=== PATIENT | female | born 1950 | race Caucasian/White ===

== ENCOUNTER → 2017-05-23 11:59 | Outpatient (CLI) | payer MEDICARE, SELFPAY ==
--- NOTE | 2017-05-23 12:17 | XR_ITS ---
XR sternum min 2V CLINICAL INDICATION: ITS.REASON: STERNAL AND CHEST WALL PAIN ORDERING PHYSICIAN: Karlo Bass MD PATIENT AGE: 67 years COMPARISON: None FINDINGS: No fracture or dislocation. No obvious lytic or blastic change. IMPRESSION: Negative sternum. CT may better evaluate if clinically warranted.
--- NOTE | 2017-05-23 12:17 | XR_ITS ---
XR chest 2V HISTORY: ITS.REASON: STENAL AND CHEST WALL PAIN ORDERING PHYSICIAN: Karlo Bass MD PATIENT AGE: 67 years COMPARISON: None available FINDINGS: Cardiac size is upper limits of normal. No evidence of CHF. No obvious mediastinal or hilar mass. The lungs are clear bilaterally. No effusions or infiltrates. There is a mild upper thoracic scoliosis convex right and lower thoracic scoliosis convex left with multilevel osteophytes and mild ankylosis of the thoracic spine. IMPRESSION: 1. No acute finding. 2. 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
[2017-05-23 12:45] LABS: Basophils % 0.5 % (0.1-2.0); Eosinophils # 0.1 K/mm3 (0.0-0.4); Eosinophils % 0.7 % (0.1-12.0); Hematocrit 40.8 % (37.0-47.0); Hemoglobin 13.3 g/dL (12.2-16.2); Lymphocytes # 1.9 K/mm3 (0.7-4.5); Lymphocytes % 28.8 K/mm3 (10-50); Mean Corpuscular HGB Conc 32.5 g/dL (31.8-35.4); Mean Corpuscular Hemoglobin 30.1 pg (27.0-31.2); Mean Corpuscular Volume 92.4 fl (81-99); Mean Platelet Volume 8.1 fl (7.4-10.4); Monocytes # 0.2 K/mm3 (0.1-1.0); Monocytes % 3.6 % (1.7-9.3); Neutrophils # 4.4 K/mm3 (1.8-7.8); Neutrophils % 66.5 % (37.0-80.0); Platelet Count 268 K/mm3 (142-424); Red Blood Count 4.42 M/mm3 (4.20-5.40); Red Cell Distribution Width 13.5 % (11.5-17.5); White Blood Count 6.7 K/mm3 (4.8-10.8)
[2017-05-23 14:22] LABS: Alanine Aminotransferase 24 U/L (12-78); Albumin Level 3.9 gm/dL (3.4-5.0); Albumin/Globulin Ratio 1.3 (1.1-1.8); Alkaline Phosphatase 119 U/L (46-116); Anion Gap 9.9 mEq/L (5-15); Aspartate Amino Transferase 18 U/L (15-37); Bilirubin,Total 0.3 mg/dL (0.2-1.0); Blood Urea Nitrogen 10 mg/dL (7-18); Calcium 8.8 mg/dL (8.5-10.1); Carbon Dioxide 26 mmol/L (21.0-32.0); Chloride 107 mmol/L (98-107); Chol/HDL Ratio 2.1 (1-3.5); Cholesterol 163 mg/dL (140-200); Creatinine,Serum 0.77 mg/dL (0.55-1.02); Estimated Glomerular Filt Rate 75 ml/min (>60); GFR (African American) 90 ML/MIN (>60); Globulin 3.1 gm/dl (1.3-3.2); Glucose 126 mg/dL (74-106); HDL Cholesterol 78 mg/dL (29-89); LDL Cholesterol 68 mg/dL (0-130); Potassium 3.9 mmoL/L (3.5-5.1); Sodium 139 mmol/L (136-145); Triglycerides 84 mg/dL (30-200); VLDL Cholesterol 17 mg/dL (0-40)
[2017-05-25 15:19] LABS: Vitamin D 25 Hydroxy 22.4 ng/mL (30.0-100.0)
== END ==
PROVIDERS: PCP Internal Medicine Adolescent Medicine; Visit Provider Internal Medicine Adolescent Medicine
DX: R07.89 Other chest pain (principal); E55.9 Vitamin D deficiency, unspecified
CPT/HCPCS: 36415; 71046; 71120; 80053; 80061; 82652; 85025

== ENCOUNTER → 2017-09-17 10:34 | Outpatient (CLI) | payer MEDICARE, SELFPAY ==
[2017-09-17 11:08] LABS: Hemoglobin A1C 6.2 % (0.0-7.0)
[2017-09-17 11:26] LABS: Alanine Aminotransferase 21 U/L (12-78); Albumin/Globulin Ratio 1.3 (1.1-1.8); Alkaline Phosphatase 112 U/L (46-116); Anion Gap 13.3 mEq/L (5-15); Aspartate Amino Transferase 20 U/L (15-37); Bilirubin,Total 0.4 mg/dL (0.2-1.0); Blood Urea Nitrogen 13 mg/dL (7-18); Calcium 9.3 mg/dL (8.5-10.1); Carbon Dioxide 27 mmol/L (21.0-32.0); Chloride 107 mmol/L (98-107); Creatinine,Serum 0.83 mg/dL (0.55-1.02); Estimated Glomerular Filt Rate 69 ml/min (>60); GFR (African American) 83 ML/MIN (>60); Globulin 3.1 gm/dl (1.3-3.2); Glucose 125 mg/dL (74-106); Potassium 4.3 mmoL/L (3.5-5.1); Sodium 143 mmol/L (136-145); Total Protein,Serum 7.1 gm/dL (6.4-8.2)
== END ==
PROVIDERS: Visit Provider Internal Medicine Adolescent Medicine
DX: R73.9 Hyperglycemia, unspecified (principal)
CPT/HCPCS: 36415; 80053; 83036

== ENCOUNTER → 2017-09-20 08:09 | Outpatient (CLI) | payer MEDICARE, SELFPAY ==
--- NOTE | 2017-09-20 08:20 | MM_ITS ---
MM Dig screening mamm BI w/CAD CAD Screening COMPARISON: None, this is baseline INDICATION: There is a history of breast cancer patient maternal aunt. TECHNIQUE: Standard CC and MLO images were obtained. R2 CAD reviewed. FINDINGS: The breasts are composed primarily of fat with scattered fibroglandular densities throughout both breast. There are few benign-appearing calcifications in each breast. There are linear calcification in the subareolar region of the right breast typical of secretory disease. There is no suspicious lesion and no suspicious microcalcifications. There are small fatty replaced nodes in both axilla. IMPRESSION: Fibrofatty parenchyma with no suspicious lesion seen BI-RADS Category: 2 Benign Finding(s) RECOMMENDED FOLLOW-UP: 1YR - 1 YEAR FOLLOW-UP (A letter has been sent to the patient regarding results of the study.)
--- NOTE | 2017-09-20 08:20 | XR_ITS ---
XR DEXA axial skeleton HISTORY: ITS.REASON: POST MENOPAUSAL ORDERING PHYSICIAN: Karlo Bass MD PATIENT AGE: 67 years COMPARISON: None FINDINGS: The BMD measured at the left femoral neck is 0.978 g/cm squared with a T score of -0.4. This is considered Normal according to the World Health Organization criteria. Fracture risk is Low. Treatment is advised. The L1 L4 density has a T score of 2.1 which is normal IMPRESSION: Normal bone density. Low fracture risk. Recommend follow-up exam September 2019
== END ==
PROVIDERS: PCP Internal Medicine Adolescent Medicine; Visit Provider Internal Medicine Adolescent Medicine
DX: Z12.31 Encounter for screening mammogram for malignant neoplasm of breast (principal); Z78.0 Asymptomatic menopausal state
CPT/HCPCS: 77067; 77080

== ENCOUNTER → 2017-12-28 10:36 | Outpatient (CLI) | payer MEDICARE, SELFPAY ==
[2017-12-28 12:14] LABS: Alanine Aminotransferase 20 U/L (12-78); Albumin/Globulin Ratio 1.1 (1.1-1.8); Alkaline Phosphatase 119 U/L (46-116); Anion Gap 13.9 mEq/L (5-15); Aspartate Amino Transferase 18 U/L (15-37); Bilirubin,Total 0.5 mg/dL (0.2-1.0); Blood Urea Nitrogen 13 mg/dL (7-18); Calcium 9.4 mg/dL (8.5-10.1); Carbon Dioxide 28 mmol/L (21.0-32.0); Chloride 104 mmol/L (98-107); Estimated Glomerular Filt Rate 62 ml/min (>60); GFR (African American) 76 ML/MIN (>60); Globulin 3.6 gm/dl (1.3-3.2); Glucose 114 mg/dL (74-106); Potassium 3.9 mmoL/L (3.5-5.1); Sodium 142 mmol/L (136-145); Total Protein,Serum 7.6 gm/dL (6.4-8.2)
[2017-12-28 12:16] LABS: Hemoglobin A1C 6.5 % (0.0-7.0)
== END ==
PROVIDERS: PCP Internal Medicine Adolescent Medicine; Visit Provider Internal Medicine Adolescent Medicine
DX: E11.9 Type 2 diabetes mellitus without complications (principal)
CPT/HCPCS: 36415; 80053; 83036

== ENCOUNTER → 2018-07-24 10:20 | Outpatient (CLI) | payer MEDICARE, SELFPAY ==
[2018-07-24 11:11] LABS: Basophils % 0.4 % (0.1-2.0); Eosinophils # 0.1 K/mm3 (0.0-0.4); Eosinophils % 1.3 % (0.1-12.0); Hematocrit 41.3 % (37.0-47.0); Hemoglobin 13.1 g/dL (12.2-16.2); Lymphocytes # 1.8 K/mm3 (0.7-4.5); Lymphocytes % 27.8 % (10-50); Mean Corpuscular HGB Conc 31.7 g/dL (31.8-35.4); Mean Corpuscular Hemoglobin 29.9 pg (27.0-31.2); Mean Corpuscular Volume 94.2 fl (81-99); Monocytes # 0.3 K/mm3 (0.1-1.0); Monocytes % 4.3 % (1.7-9.3); Neutrophils # 4.3 K/mm3 (1.8-7.8); Neutrophils % 66.2 % (37.0-80.0); Platelet Count 242 K/mm3 (142-424); Red Blood Count 4.38 M/mm3 (4.20-5.40); Red Cell Distribution Width 13.4 % (11.5-17.5); White Blood Count 6.5 K/mm3 (4.8-10.8)
[2018-07-24 11:58] LABS: Alanine Aminotransferase 20 U/L (12-78); Albumin/Globulin Ratio 1.3 (1.1-1.8); Alkaline Phosphatase 99 U/L (46-116); Anion Gap 14.8 mEq/L (5-15); Aspartate Amino Transferase 13 U/L (15-37); Bilirubin,Total 0.5 mg/dL (0.2-1.0); Blood Urea Nitrogen 14 mg/dL (7-18); Calcium 9.1 mg/dL (8.5-10.1); Carbon Dioxide 27 mmol/L (21.0-32.0); Chloride 106 mmol/L (98-107); Cholesterol 164 mg/dL (140-200); Estimated Glomerular Filt Rate 71 ml/min (>60); GFR (African American) 86 ML/MIN (>60); Glucose 106 mg/dL (74-106); HDL Cholesterol 81 mg/dL (29-89); LDL Cholesterol 69 mg/dL (0-130); Potassium 4.8 mmoL/L (3.5-5.1); Sodium 143 mmol/L (136-145); Triglycerides 69 mg/dL (30-200); VLDL Cholesterol 14 mg/dL (0-40)
[2018-07-24 12:36] LABS: Hemoglobin A1C 6.2 % (0.0-7.0)
== END ==
PROVIDERS: Visit Provider Internal Medicine Adolescent Medicine
DX: E78.5 Hyperlipidemia, unspecified (principal); E11.9 Type 2 diabetes mellitus without complications; Z79.84 Long term (current) use of oral hypoglycemic drugs; M15.0 Primary generalized (osteo)arthritis
CPT/HCPCS: 36415; 80053; 80061; 83036; 85025

== ENCOUNTER 2018-08-25 22:37 | Inpatient (IN) ==
[2018-08-25 23:02] LABS: Basophils % 0.2 % (0.1-2.0); Eosinophils # 0.1 K/mm3 (0.0-0.4); Hematocrit 38.6 % (37.0-47.0); Hemoglobin 12.8 g/dL (12.2-16.2); Lymphocytes # 1.1 K/mm3 (0.7-4.5); Lymphocytes % 9.1 % (10-50); Mean Corpuscular HGB Conc 33.1 g/dL (31.8-35.4); Mean Corpuscular Hemoglobin 28.9 pg (27.0-31.2); Mean Corpuscular Volume 87.4 fl (81-99); Mean Platelet Volume 7.8 fl (7.4-10.4); Monocytes # 0.6 K/mm3 (0.1-1.0); Monocytes % 4.7 % (1.7-9.3); Neutrophils # 10.6 K/mm3 (1.8-7.8); Neutrophils % 85.1 % (37.0-80.0); Platelet Count 206 K/mm3 (142-424); Red Blood Count 4.42 M/mm3 (4.20-5.40); Red Cell Distribution Width 12.9 % (11.5-17.5); White Blood Count 12.5 K/mm3 (4.8-10.8)
[2018-08-25 23:08] LABS: Eosinophils % 1 % (0-3); Lymphocytes % 5 % (10-50); Monocytes % 4 % (2-9); Neutrophils % 89 % (42-76); RBC Morphology Normal; Total Cells Counted 100
[2018-08-25 23:10] LABS: Albumin Level 3.7 gm/dL (3.4-5.0); Albumin/Globulin Ratio 1.1 (1.1-1.8); Anion Gap 16.8 mEq/L (5-15); Bilirubin,Total 0.7 mg/dL (0.2-1.0); Calcium 8.7 mg/dL (8.5-10.1); Globulin 3.5 gm/dl (1.3-3.2); Potassium 3.8 mmoL/L (3.5-5.1); Total Protein,Serum 7.2 gm/dL (6.4-8.2)
--- NOTE | 2018-08-25 23:27 | Emergency Department Note ---
ED Disposition Clinical Impression: Diverticulitis UTI (urinary tract infection) Qualifiers: Urinary tract infection type: site unspecified Hematuria presence: without hematuria Qualified Code(s): N39.0 - Urinary tract infection, site not specified Disposition: Admitted As Inpatient Condition on Discharge: Fair - Critical Care Critical Care Time: No Attestation: On 08/25/18, the high probability of a clinically significant, sudden or life threatening deterioration of the following system(s) required my full and direct attention, intervention and personal management. The time I documented below is in addition to time spent performing reported procedures but includes the following listed in this critical care notation. Medical Decision Making - Medical Records Medical records reviewed: Yes: I reviewed the patient's medical records. - Efraín Inquiry Pt receiving controlled substance: No Vital Signs: 08/25/18 22:41 08/25/18 23:35 08/26/18 00:02 Temperature 99.7 F H Temperature Source Oral Pulse Rate [Right Brachial] 95 H 73 71 Respiratory Rate 18 18 16 Blood Pressure [Right Arm] 148/81 H 122/63 128/67 Blood Pressure Mean [Right Arm] 103 82 87 Blood Pressure Source [Right Arm] Automatic Cuff Automatic Cuff Automatic Cuff Blood Pressure Position [Right Arm] Sitting Sitting Sitting 02 Sat by Pulse Oximetry 97 97 97 Oxygen Delivery Method Room Air Room Air Room Air 08/26/18 01:00 Temperature 99.0 F Temperature Source Oral Pulse Rate [Right Brachial] 77 Respiratory Rate 16 Blood Pressure [Right Arm] 131/66 Blood Pressure Mean [Right Arm] 87 Blood Pressure Source [Right Arm] Automatic Cuff Blood Pressure Position [Right Arm] Sitting 02 Sat by Pulse Oximetry 97 Oxygen Delivery Method Room Air - Lab Data Lab results reviewed: Yes: I reviewed the patient's lab results. Lab Results 08/25/18 22:50: WBC 12.5 H, RBC 4.42, Hgb 12.8, Hct 38.6, MCV 87.4, MCH 28.9, MCHC 33.1, RDW 12.9, Plt Count 206, MPV 7.8, Neut % (Auto) 85.1 H, Lymph % (Auto) 9.1 L, Long % (Auto) 4.7, Eos % (Auto) 1.0, Baso % (Auto) 0.2, Neut # (Auto) 10.6 H, Lymph # (Auto) 1.1, Long # (Auto) 0.6, Eos # (Auto) 0.1, Baso # (Auto) 0.0, Total Counted 100, Neutrophils % (Manual) 89 H, Band Neutrophils % 1.0, Lymphocytes % (Manual) 5 L, Monocytes % (Manual) 4, Eosinophils % (Manual) 1, Platelet Estimate Normal, RBC Morphology Normal 08/25/18 22:50: Sodium 139, Potassium 3.8, Chloride 103, Carbon Dioxide 23, Anion Gap 16.8 H, BUN 14, Creatinine 0.89, Estimated Creat Clear 71, Estimated GFR 63, Est GFR ( Amer) 76, Glucose 142 H, Calcium 8.7, Total Bilirubin 0.7, AST 15, ALT 20, Alkaline Phosphatase 94, Total Protein 7.2, Albumin 3.7, Globulin 3.5 H, Albumin/Globulin Ratio 1.1, Amylase 35, Lipase 65 L 08/25/18 22:50: ESR 23 08/25/18 22:50: C-Reactive Protein 13.2 H 08/25/18 23:34: Urine Color Yellow, Urine Appearance Clear, Urine pH 5.5, Ur Specific [place] 1.025, Urine Protein Negative, Urine Glucose (UA) Negative, Urine Ketones Trace, Urine Blood Trace-i, Urine Nitrate Negative, Urine Bilir ubin Negative, Urine Urobilinogen 0.2, Ur Leukocyte Esterase 1+ A, Urine RBC Occasional, Urine WBC 5-10, Ur Squamous Epith Cells 3-5 Result diagrams: 08/25/18 22:50 08/25/18 22:50 Orders (Tests/Meds): ED MEDICATIONS Generic Name Dose Route Start Last Admin Trade Name Noy PRN Reason Stop Dose Admin Sodium Chloride 1,000 mls @ 999 mls/hr 08/25/18 23:00 08/25/18 23:11 Sod Chlor 0.9% 1000ml Bag IV 08/26/18 00:00 999 mls/hr .Q1H1M SHAYLEE Administration Levofloxacin/Dextrose 750 mg in 150 mls @ 100 mls/hr 08/26/18 01:15 Levofloxacin 750mg/150ml Premix IV 09/09/18 01:14 Q24H SHAYLEE Protocol Metronidazole 500 mg in 100 mls @ 100 mls/hr 08/26/18 01:00 08/26/18 01:17 Flagyl 500mg/100ml Ivpb IV 09/09/18 00:59 100 mls/hr Q8H SHAYLEE Administration Protocol Discontinued Medications Generic Name Dose Route Start Last Admin Trade Name Noy COLEMAN Reason Stop Dose Admin Acetaminophen 500 mg 08/25/18 22:55 08/25/18 23:11 Tylenol 500mg Tablet PO 08/25/18 22:56 500 mg ONCE ONE Administration Ketorolac Tromethamine 15 mg 08/25/18 22:55 08/25/18 23:11 Toradol 30mg/Ml Vial IV 08/25/18 22:56 15 mg ONCE ONE Administration Ondansetron HCl 4 mg 08/25/18 22:53 08/25/18 23:11 Zofran 4mg/2ml Vial IV 08/25/18 22:54 4 mg ONCE ONE Administration ORDERS Category Date Time Status CT abdomen pelvis wo con Stat Cat Scan 08/25/18 22:53 Taken Blood Culture Stat Micro 08/26/18 01:05 Received Urine Culture Stat Micro 08/25/18 23:34 Received - CT Data CT Scan: Abdomen, Pelvis Time Received: 00:[address] Reviewed: Yes: I have viewed the radiologist's interpretation Preliminary Findings: Abnormal (diverticulitis) Nausea/Vomiting/Diarrhea HPI - General Chief complaint: Abdominal Pain Stated complaint: Dry heaving, cough, hot Time Seen by Provider: 08/25/18 23:27 Mode of Arrival: Ambulatory Source of Information: Patient, Medical Record Limitations: No Limitations Description of Symptoms (Recalled from ER Triage Doc. by RN): Pt c/o abd pain, n/v and a fever x 3 days. - History of Present Illness HPI Narrative: lower abd pain with n/v over the last few days MD complaint: nausea, vomiting, abdominal pain Onset (ago): day(s) Associated Abdominal Pain: Yes Location of pain: LLQ Severity: moderate Associated symptoms: denies other symptoms - Related Data Home Medications Medication Instructions Recorded Confirmed calcium carbonate 500 mg calcium 500 mg PO BID tab 10/02/17 08/25/18 (1,250 mg) tablet diclofenac sodium 75 mg 75 mg PO BID 10/02/17 08/25/18 tablet,delayed release glucosamine HCl 1,500 mg tablet 1,500 mg PO ONCE 10/02/17 08/25/18 losartan 25 mg tablet 25 mg PO ONCE 10/02/17 08/25/18 metformin 500 mg tablet 500 mg PO BID 10/02/17 08/25/18 simvastatin 40 mg tablet 40 mg PO QPM 10/02/17 08/25/18 vitamin B12 500 mcg-folic acid 400 1 tab PO ONCE 10/02/17 08/25/18 mcg tablet Allergies Allergy/AdvReac Type Severity Reaction Status Date / Time No Known Allergies Allergy Verified 08/25/18 22:50 [facility] [place] History - Hepatitis A Screen Drug use history?: No High risk sexual behaviors?: No History of sexually transmitted infection?: No Currently employed?: No Childcare worker?: No Do you have indoor plumbing?: Yes Do you have electricity?: Yes Attestation statement:: This patient has been screened for Hepatitis A risk factors. I have reviewed the patient's past medical history: Yes Medical History: Reports:: Diabetes Mellitus Type 2, Hypertension Denies:: Cancer, Diabetes Mellitus Type 1, Internal Pacemaker, Lung Disease, MRSA, Seizures Laterality Cases: Bilateral: Tonsillectomy Other Surgeries: Yes: Colonoscopy, Tubal Ligation. No: Pacemaker Amputation: No - Social History Smoking Status: Never smoker Alcohol Intake: never Substance Use Type: denies use Occupational Status: employed Housing: house - Psychiatric History Expresses thoughts of harming self/others: None Suicide Plan Description: No Plan Family Hx:: No significant family history ROS Obtained: Yes All systems reviewed & no additional complaints - Constitutional Constitutional: Reports fever(s) - Eyes Eyes: Denies change in vision - ENT Ears, Nose, Mouth, and Throat: Denies sore throat - Cardiovascular Cardiovascular: Denies chest pain - Respiratory Respiratory: No cough - Gastrointestinal Gastrointestingal: Reports: abdominal pain, nausea, vomiting. Denies: diarrhea - Genitourinary Female Genitourinary: Denies hematuria - Musculoskeletal Musculoskeletal: Denies joint pain - Integumentary/Breasts Skin/Breast: Denies rash - Neurologic Neurologic: Denies seizure-like activity Physical Exam - General General appearance: alert - Head Head exam: normocephalic - Eye Eye exam: Present: PERRL, EOMI. Absent: scleral icterus - ENT ENT exam: Present: mucous membranes dry - Neck Neck exam: Present: trachea midline - Respiratory Respiratory exam: Present: normal lung sounds bilaterally. Absent: respiratory distress - Cardiovascular Cardiovascular exam: Present: regular rate, systolic murmur, +S4 - Abdominal Exam Abdominal exam: Present: soft, tenderness Abdominal tenderness: Present: LLQ, moderate - Extremities Exam Extremities exam: Present: full ROM - Neurological Exam Neurological exam: Present: alert, oriented X3, CN II-XII intact - Psychiatric Psychiatric exam: Present: normal affect - Skin Skin exam: Absent: rash
[2018-08-25 23:41] LABS: Microscopic, Urine URINE MICROSCOPIC (MICROSCOPIC)
[2018-08-25 23:42] LABS: Appearance,Urine CLEAR (Clear); Bilirubin,Urine Negative (Negative); Blood, Urine TRACE-I (Negative); Color,Urine YELLOW (Yellow); Glucose,Urine (UA) Negative (Negative); Ketones,Urine TRACE (Negative); Leukocyte Esterase,Urine 1+ (Negative); PH,Urine 5.5 (5.0-8.5); Protein,Urine Negative (Negative); Specific Gravity, Urine 1.025 (1.005-1.030); Urobilinogen,Urine 0.2 EU/dl (0.2)
[2018-08-25 23:45] LABS: RBC,Urine Occasional #/hpf (0-3)
[2018-08-26 06:29] LABS: Eosinophils % 0.2 % (0.1-12.0); Monocytes # 0.6 K/mm3 (0.1-1.0)
[2018-08-26 06:37] LABS: Basophils % 0.2 % (0.1-2.0); Hematocrit 35.7 % (37.0-47.0); Lymphocytes # 1.4 K/mm3 (0.7-4.5); Lymphocytes % 12.4 % (10-50); Mean Corpuscular HGB Conc 31.8 g/dL (31.8-35.4); Mean Corpuscular Hemoglobin 28.5 pg (27.0-31.2); Mean Corpuscular Volume 89.6 fl (81-99); Monocytes % 4.9 % (1.7-9.3); Neutrophils # 9.4 K/mm3 (1.8-7.8); Neutrophils % 82.3 % (37.0-80.0); Platelet Count 200 K/mm3 (142-424); Red Blood Count 3.99 M/mm3 (4.20-5.40); White Blood Count 11.5 K/mm3 (4.8-10.8)
[2018-08-26 06:54] LABS: Hemoglobin 11.3 g/dL (12.2-16.2)
[2018-08-26 06:58] LABS: Anion Gap 12.7 mEq/L (5-15); Calcium 8.3 mg/dL (8.5-10.1); Potassium 3.7 mmoL/L (3.5-5.1)
--- NOTE | 2018-08-26 07:29 | Pharmacy Consult Notes ---
[facility] Pharmacy VTE Monitoring - Patient Demographics Admission date: 08/25/18 Report Date: 08/26/18 Time: 07:29 Allergies/Adverse Reactions: Patient Allergies No Known Allergies Allergy (Verified 08/25/18 22:50) Height: 1.6 m Weight: 86.239 kg Patient Problems: Current Active Problems (Updated 08/26/18 @ 01:04 by Micky Hidalgo MD) Diverticulitis (Acute) UTI (urinary tract infection) (Acute) - VTE Risk Labs: VTE Related Lab Results Hgb 11.3 g/dL (12.2-16.2) L D 08/26/18 05:55 Hct 35.7 % (37.0-47.0) L 08/26/18 05:55 Plt Count 200 K/mm3 (142-424) 08/26/18 05:55 BUN 11 mg/dL (7-18) 08/26/18 05:55 Creatinine 0.88 mg/dL (0.55-1.02) 08/26/18 05:55 Estimated Creat Clear 73 mL/min (50-200) 08/26/18 05:55 Was VTE Risk Assessment Performed: Yes VTE Score: 4 VTE Risk Level: Low Risk - Prophylaxis VTE Prophylaxis Ordered?: Yes Types of VTE Prophylaxis: TEDS Knee High Location of Applied Device: Bilateral Lower Extremeties - VTE Diagnosis Confirmed Treatment or plan recommended: Continue Current Treatment
--- NOTE | 2018-08-26 08:11 | History & Physical Report ---
*Admission Date: 08/25/18 *Chief complaint: Abdominal pain *History of present illness: 68-year-old white female with good functional status at home who is had increasing problems with insidious abdominal pain over the past couple of weeks. Thought she had a urinary tract infection and presented to the emergency department. Did indeed have a UTI but also CT scanning showed evidence of significant sigmoid diverticulitis with evidence of microperforation. She was admitted to hospital for further diagnostic testing. Is morning she feels somewhat better. [facility] History I have reviewed the patient's past medical history: Yes Medical History: Reports:: Diabetes Mellitus Type 2, Hypertension Denies:: Cancer, Diabetes Mellitus Type 1, Internal Pacemaker, Lung Disease, MRSA, Seizures *Have you ever received a pneumonia vaccine?: Yes *Have you received a flu vaccine this season?: Yes Laterality Cases: Bilateral: Tonsillectomy Other Surgeries: Yes: Colonoscopy, Tubal Ligation. No: Pacemaker Amputation: No - *Social History Smoking Status: Former smoker Tobacco Type: cigarettes # Packs/Day (cigarettes): 1 Alcohol Intake: never Substance Use Type: denies use *Occupational Status:: employed Housing: house *Travel in the last 8 weeks: None - Psychiatric History Expresses thoughts of harming self/others: None Suicide Plan Description: No Plan Family Hx:: No significant family history, Cancer, Coronary Artery Disease, Diabetes, Hyperlipidemia, Hypertension, Kidney Disease Review of Systems - Review of Systems Review of systems:: pertinent systems reviewed and negative unless documented below - Constitutional Reports anorexia, Reports body ache(s) - Eyes Denies blind spots, Denies blurry vision, Denies change in vision - ENT Denies abnormal hearing, Denies poor balance, Denies dizziness - *Cardiovascular Denies chest pain, Denies excessive sweating, Denies shortness of breath - *Respiratory Denies change in phlegm color, Denies chest congestion, Denies cough - *Gastrointestinal Reports abdominal pain, Reports change in stools, Denies coffee ground vomit, Denies difficulty swallowing - *Musculoskeletal Denies abnormal walking - Integumentary/Breasts Denies acne, Denies hair loss - *Neurologic Denies abnormal walking, Denies seizure-like activity - Hematologic/Lymphatic Denies easy bleeding, Denies easy bruising - Allergic/Immunologic Denies GI upset with certain foods Meds Home Medications Medication Instructions Recorded Confirmed Type calcium carbonate 500 mg calcium 500 mg PO BID tab 07/24/18 06/17/19 History (1,250 mg) tablet diclofenac sodium 75 mg 75 mg PO BID 10/02/17 08/26/18 History tablet,delayed release glucosamine HCl 1,500 mg tablet 1,500 mg PO ONCE 10/02/17 08/26/18 History losartan 25 mg tablet 25 mg PO ONCE 10/02/17 08/26/18 History metformin 500 mg tablet 500 mg PO BID 10/02/17 08/26/18 History simvastatin 40 mg tablet 40 mg PO QPM 10/02/17 08/26/18 History vitamin B12 500 mcg-folic acid 400 1 tab PO ONCE 10/02/17 08/26/18 History mcg tablet Allergies Allergy/AdvReac Type Severity Reaction Status Date / Time No Known Allergies Allergy Verified 08/25/18 22:50 Exam Vital signs and Labs for Last 24 Hours: Temp Pulse Resp BP Pulse Ox 97.9 F 73 18 116/59 L 99 08/26/18 04:00 08/26/18 04:00 08/26/18 04:00 08/26/18 04:00 08/26/18 07:40 Laboratory Results - last 24 hr 08/25/18 22:50: WBC 12.5 H, RBC 4.42, Hgb 12.8, Hct 38.6, MCV 87.4, MCH 28.9, MCHC 33.1, RDW 12.9, Plt Count 206, MPV 7.8, Neut % (Auto) 85.1 H, Lymph % (Auto) 9.1 L, [place] % (Auto) 4.7, Eos % (Auto) 1.0, Baso % (Auto) 0.2, Neut # (Auto) 10.6 H, Lymph # (Auto) 1.1, [place] # (Auto) 0.6, Eos # (Auto) 0.1, Baso # (Auto) 0.0, Total Counted 100, Neutrophils % (Manual) 89 H, Band Neutrophils % 1.0, Lymphocytes % (Manual) 5 L, Monocytes % (Manual) 4, Eosinophils % (Manual) 1, Platelet Estimate Normal, RBC Morphology Normal 08/25/18 22:50: Sodium 139, Potassium 3.8, Chloride 103, Carbon Dioxide 23, Anion Gap 16.8 H, BUN 14, Creatinine 0.89, Estimated Creat Clear 71, Estimated GFR 63, Est GFR ( Amer) 76, Glucose 142 H, Calcium 8.7, Total Bilirubin 0.7, AST 15, ALT 20, Alkaline Phosphatase 94, Total Protein 7.2, Albumin 3.7, Globulin 3.5 H, Albumin/Globulin Ratio 1.1, Amylase 35, Lipase 65 L 08/25/18 22:50: ESR 23 08/25/18 22:50: C-Reactive Protein 13.2 H 08/25/18 23:34: Urine Color Yellow, Urine Appearance Clear, Urine pH 5.5, Ur Specific [place] 1.025, Urine Protein Negative, Urine Glucose (UA) Negative, Urine Ketones Trace, Urine Blood Trace-i, Urine Nitrate Negative, Urine Bilirubin Negative, Urine Urobilinogen 0.2, Ur Leukocyte Esterase 1+ A, Urine RBC Occasional, Urine WBC 5-10, Ur Squamous Epith Cells 3-5 08/26/18 01:05: Lactate 0.5 08/26/18 05:55: WBC 11.5 H, RBC 3.99 L, Hgb 11.3 L D, Hct 35.7 L, MCV 89.6, MCH 28.5, MCHC 31.8, RDW 13.0, Plt Count 200, MPV 8.0, Neut % (Auto) 82.3 H, Lymph % (Auto) 12.4, [place] % (Auto) 4.9, Eos % (Auto) 0.2, Baso % (Auto) 0.2, Neut # (Auto) 9.4 H, Lymph # (Auto) 1.4, [place] # (Auto) 0.6, Eos # (Auto) 0.0, Baso # (Auto) 0.0 08/26/18 05:55: Sodium 144, Potassium 3.7, Chloride 110 H, Carbon Dioxide 25, Anion Gap 12.7, BUN 11, Creatinine 0.88, Estimated Creat Clear 73, Estimated GFR 64, Est GFR ( Amer) 77, Glucose 118 H, Calcium 8.3 L 08/26/18 05:59: POC Glucose 102 I & O for Last 24 hours: Intake & Output 08/23/18 08/24/18 08/25/18 08/26/18 11:59 11:59 11:59 11:59 Intake Total 1100 / 1100 Balance 1100 / 1100 Weight 190 lb 2 oz Narrative: Patient is alert, oriented x3. No jaundice. Lungs clear, heart rate regular. Abdomen soft, slight tenderness in the left lower quadrant but no rebound or guarding. No edema or clubbing or cyanosis. No rash. neurologic exam intact. Assessment and Plan (1) Diverticulitis Current visit: Yes Status: Acute Category: Medical Code(s): K57.92 - Diverticulitis of intestine, part unspecified, without perforation or abscess without bleeding Agree with admission. Given microperforation surgery consultation although anticipate surgical management would be conservative. Clear liquids today. (2) UTI (urinary tract infection) Current visit: Yes Status: Acute Qualifiers: Urinary tract infection type: site unspecified Hematuria presence: without hematuria Qualified Code(s): N39.0 - Urinary tract infection, site not specified Category: Medical Code(s): N39.0 - Urinary tract infection, site not specified Await culture result.
--- NOTE | 2018-08-26 08:50 | Consult Report ---
*Admission Date: 08/25/18 *Reason for consult:: Diverticulitis *History of present illness: The following is from Dr. Bass's History and Physical: 68-year-old white female with good functional status at home who is had increasing problems with insidious abdominal pain over the past couple of weeks. Thought she had a urinary tract infection and presented to the emergency department. Did indeed have a UTI but also CT scanning showed evidence of significant sigmoid diverticulitis with evidence of microperforation. She was admitted to hospital for further diagnostic testing. Is morning she feels somewhat better. Review of Systems - Review of Systems Review of systems:: pertinent systems reviewed and negative unless documented below - *Neurologic Denies abnormal walking, Denies abnormal hearing, Denies unsteadiness, Denies dizziness, Denies seizure-like activity [facility] History Medical History: Reports:: Diabetes Mellitus Type 2, Hypertension Denies:: Cancer, Diabetes Mellitus Type 1, Internal Pacemaker, Lung Disease, MRSA, Seizures *Have you ever received a pneumonia vaccine?: Yes *Have you received a flu vaccine this season?: Yes Laterality Cases: Bilateral: Tonsillectomy Other Surgeries: Yes: Colonoscopy, Tubal Ligation. No: Pacemaker Amputation: No - *Social History Smoking Status: Former smoker Tobacco Type: cigarettes # Packs/Day (cigarettes): 1 Alcohol Intake: never Substance Use Type: denies use *Occupational Status:: employed Housing: house *Travel in the last 8 weeks: None - Psychiatric History Expresses thoughts of harming self/others: None Suicide Plan Description: No Plan Family Hx:: No significant family history, Cancer, Coronary Artery Disease, Diabetes, Hyperlipidemia, Hypertension, Kidney Disease Meds Home Medications Medication Instructions Recorded Confirmed Type calcium carbonate 500 mg calcium 500 mg PO BID tab 10/02/17 08/26/18 History (1,250 mg) tablet diclofenac sodium 75 mg 75 mg PO BID 10/02/17 08/26/18 History tablet,delayed release glucosamine HCl 1,500 mg tablet 1,500 mg PO DAILY 10/02/17 08/26/18 History losartan 25 mg tablet 25 mg PO DAILY 10/02/17 08/26/18 History metformin 500 mg tablet 500 mg PO DAILY 10/02/17 08/26/18 History simvastatin 40 mg tablet 40 mg PO HS 10/02/17 08/26/18 History vitamin B12 500 mcg-folic acid 400 1 tab PO DAILY 10/02/17 08/26/18 History mcg tablet Allergies Allergy/AdvReac Type Severity Reaction Status Date / Time No Known Allergies Allergy Verified 08/25/18 22:50 Exam Vital signs and Labs for Last 24 Hours: Temp Pulse Resp BP Pulse Ox 97.9 F 63 18 122/71 100 08/26/18 08:00 08/26/18 08:00 08/26/18 08:00 08/26/18 08:00 08/26/18 08:00 Laboratory Results - last 24 hr 08/25/18 22:50: WBC 12.5 H, RBC 4.42, Hgb 12.8, Hct 38.6, MCV 87.4, MCH 28.9, MCHC 33.1, RDW 12.9, Plt Count 206, MPV 7.8, Neut % (Auto) 85.1 H, Lymph % (Auto) 9.1 L, [place] % (Auto) 4.7, Eos % (Auto) 1.0, Baso % (Auto) 0.2, Neut # (Auto) 10.6 H, Lymph # (Auto) 1.1, [place] # (Auto) 0.6, Eos # (Auto) 0.1, Baso # (Auto) 0.0, Total Counted 100, Neutrophils % (Manual) 89 H, Band Neutrophils % 1.0, Lymphocytes % (Manual) 5 L, Monocytes % (Manual) 4, Eosinophils % (Manual) 1, Platelet Estimate Normal, RBC Morphology Normal 08/25/18 22:50: Sodium 139, Potassium 3.8, Chloride 103, Carbon Dioxide 23, Anion Gap 16.8 H, BUN 14, Creatinine 0.89, Estimated Creat Clear 71, Estimated GFR 63, Est GFR ( Amer) 76, Glucose 142 H, Calcium 8.7, Total Bilirubin 0.7, AST 15, ALT 20, Alkaline Phosphatase 94, Total Protein 7.2, Albumin 3.7, Globulin 3.5 H, Albumin/Globulin Ratio 1.1, Amylase 35, Lipase 65 L 08/25/18 22:50: ESR 23 08/25/18 22:50: C-Reactive Protein 13.2 H 08/25/18 23:34: Urine Color Yellow, Urine Appearance Clear, Urine pH 5.5, Ur Specific [place] 1.025, Urine Protein Negative, Urine Glucose (UA) Negative, Urine Ketones Trace, Urine Blood Trace-i, Urine Nitrate Negative, Urine Bilirubin Negative, Urine Urobilinogen 0.2, Ur Leukocyte Esterase 1+ A, Urine RBC Occasional, Urine WBC 5-10, Ur Squamous Epith Cells 3-5 08/26/18 01:05: Lactate 0.5 08/26/18 05:55: WBC 11.5 H, RBC 3.99 L, Hgb 11.3 L D, Hct 35.7 L, MCV 89.6, MCH 28.5, MCHC 31.8, RDW 13.0, Plt Count 200, MPV 8.0, Neut % (Auto) 82.3 H, Lymph % (Auto) 12.4, [place] % (Auto) 4.9, Eos % (Auto) 0.2, Baso % (Auto) 0.2, Neut # (Auto) 9.4 H, Lymph # (Auto) 1.4, [place] # (Auto) 0.6, Eos # (Auto) 0.0, Baso # (Auto) 0.0 08/26/18 05:55: Sodium 144, Potassium 3.7, Chloride 110 H, Carbon Dioxide 25, Anion Gap 12.7, BUN 11, Creatinine 0.88, Estimated Creat Clear 73, Estimated GFR 64, Est GFR ( Amer) 77, Glucose 118 H, Calcium 8.3 L 08/26/18 05:59: POC Glucose 102 I & O for Last 24 hours: Intake & Output 08/23/18 08/24/18 08/25/18 08/26/18 11:59 11:59 11:59 11:59 Intake Total 1100 / 1100 Balance 1100 / 1100 Weight 190 lb 2 oz - *Routine HEENT Exam Head: Present: normocephalic Eye: Present: EOMI, PERRL ENT: Present: mucous membranes moist - *Routine Neck Exam Present: supple. Absent: lymphadenopathy - *Routine Respiratory Exam Present: CTA bilaterally - *Routine Cardiovascular Exam Present: RRR - *Routine Abdominal Exam Present: soft, normoactive bowel sounds, tenderness Comments: Very mild tenderness in the suprapubic and left lower quadrant area. - *Routine Extremities Exam Absent: cyanosis, clubbing, edema - *Routine Skin Exam Present: warm. Absent: rash - *Routine Neurological Exam Present: alert, oriented X3 - Detailed Eye Exam Eyelids: Left normal inspection Results - Labs 08/26/18 05:55 08/26/18 05:55 Laboratory Results - last 24 hr 08/25/18 22:50: WBC 12.5 H, RBC 4.42, Hgb 12.8, Hct 38.6, MCV 87.4, MCH 28.9, MCHC 33.1, RDW 12.9, Plt Count 206, MPV 7.8, Neut % (Auto) 85.1 H, Lymph % (Auto) 9.1 L, [place] % (Auto) 4.7, Eos % (Auto) 1.0, Baso % (Auto) 0.2, Neut # (Auto) 10.6 H, Lymph # (Auto) 1.1, [place] # (Auto) 0.6, Eos # (Auto) 0.1, Baso # (Auto) 0.0, Total Counted 100, Neutrophils % (Manual) 89 H, Band Neutrophils % 1.0, Lymphocytes % (Manual) 5 L, Monocytes % (Manual) 4, Eosinophils % (Manual) 1, Platelet Estimate Normal, RBC Morphology Normal 08/25/18 22:50: Sodium 139, Potassium 3.8, Chloride 103, Carbon Dioxide 23, Anion Gap 16.8 H, BUN 14, Creatinine 0.89, Estimated Creat Clear 71, Estimated GFR 63, Est GFR ( Amer) 76, Glucose 142 H, Calcium 8.7, Total Bilirubin 0.7, AST 15, ALT 20, Alkaline Phosphatase 94, Total Protein 7.2, Albumin 3.7, Globulin 3.5 H, Albumin/Globulin Ratio 1.1, Amylase 35, Lipase 65 L 08/25/18 22:50: ESR 23 08/25/18 22:50: C-Reactive Protein 13.2 H 08/25/18 23:34: Urine Color Yellow, Urine Appearance Clear, Urine pH 5.5, Ur Specific [place] 1.025, Urine Protein Negative, Urine Glucose (UA) Negative, Urine Ketones Trace, Urine Blood Trace-i, Urine Nitrate Negative, Urine Bilirubin Negative, Urine Urobilinogen 0.2, Ur Leukocyte Esterase 1+ A, Urine RBC Occasional, Urine WBC 5-10, Ur Squamous Epith Cells 3-5 08/26/18 01:05: Lactate 0.5 08/26/18 05:55: WBC 11.5 H, RBC 3.99 L, Hgb 11.3 L D, Hct 35.7 L, MCV 89.6, MCH 28.5, MCHC 31.8, RDW 13.0, Plt Count 200, MPV 8.0, Neut % (Auto) 82.3 H, Lymph % (Auto) 12.4, [place] % (Auto) 4.9, Eos % (Auto) 0.2, Baso % (Auto) 0.2, Neut # (Auto) 9.4 H, Lymph # (Auto) 1.4, [place] # (Auto) 0.6, Eos # (Auto) 0.0, Baso # (Auto) 0.0 08/26/18 05:55: Sodium 144, Potassium 3.7, Chloride 110 H, Carbon Dioxide 25, Anion Gap 12.7, BUN 11, Creatinine 0.88, Estimated Creat Clear 73, Estimated GFR 64, Est GFR ( Amer) 77, Glucose 118 H, Calcium 8.3 L 08/26/18 05:59: POC Glucose 102 Assessment and Plan (1) Diverticulitis Current visit: Yes Status: Acute Category: Medical Code(s): K57.92 - Diverticulitis of intestine, part unspecified, without perforation or abscess without bleeding (2) UTI (urinary tract infection) Current visit: Yes Status: Acute Qualifiers: Urinary tract infection type: site unspecified Hematuria presence: without hematuria Qualified Code(s): N39.0 - Urinary tract infection, site not specified Category: Medical Code(s): N39.0 - Urinary tract infection, site not specified - Assessment and plan all Dx Assessment and Plan for all problems:: Patient has appreciable but uncomplicated diverticulitis on CT scan. She is on intravenous antibiotics consisting of levofloxacin and metronidazole. She feels somewhat better today. Hopefully she will be able to be transitioned to oral antibiotics once she shows improvement for management conservatively without surgical intervention. Consideration may be given for repeat colonoscopy in several weeks as an outpatient. She did have colonoscopy by Dr. 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
--- NOTE | 2018-08-27 06:56 | Progress Note ---
Subjective Patient reports: feels better Narrative: Patient denies any appreciable abdominal pain. She has tolerated clear liquids without difficulty. Exam Vital signs and Labs for Last 24 Hours: Temp Pulse Resp BP Pulse Ox 98.0 F 67 18 101/46 L 97 08/27/18 04:00 08/27/18 04:00 08/27/18 04:00 08/27/18 04:00 08/27/18 04:00 Laboratory Results - last 24 hr 08/26/18 05:55: WBC 11.5 H, RBC 3.99 L, Hgb 11.3 L D, Hct 35.7 L, MCV 89.6, MCH 28.5, MCHC 31.8, RDW 13.0, Plt Count 200, MPV 8.0, Neut % (Auto) 82.3 H, Lymph % (Auto) 12.4, [place] % (Auto) 4.9, Eos % (Auto) 0.2, Baso % (Auto) 0.2, Neut # (Auto) 9.4 H, Lymph # (Auto) 1.4, [place] # (Auto) 0.6, Eos # (Auto) 0.0, Baso # (Auto) 0.0 08/26/18 05:55: Sodium 144, Potassium 3.7, Chloride 110 H, Carbon Dioxide 25, Anion Gap 12.7, BUN 11, Creatinine 0.88, Estimated Creat Clear 73, Estimated GFR 64, Est GFR ( Amer) 77, Glucose 118 H, Calcium 8.3 L 08/26/18 10:55: POC Glucose 118 H 08/26/18 17:03: POC Glucose 83 08/26/18 21:22: POC Glucose 103 08/27/18 05:46: POC Glucose 113 H I & O for Last 24 hours: Intake & Output 08/24/18 08/25/18 08/26/18 08/27/18 11:59 11:59 11:59 11:59 Intake Total 1200 / 1200 4401 / 4401 Output Total 1700 / 1700 Balance 1200 / 1200 2701 / 2701 Weight 190 lb 2 oz 190 lb 2 oz Microbiology Reports for the Last 24 Hours: Microbiology 08/25/18 23:34 Urine,Clean Catch Urine Culture - Preliminary NO GROWTH AFTER 24 HOURS - *Routine Abdominal Exam Present: soft. Absent: tenderness Comments: She has no appreciable tenderness. No guarding or rebound. Progress Note: A&P (1) Diverticulitis Status: Acute Current Visit: Yes (2) UTI (urinary tract infection) Status: Acute Current Visit: Yes Assessment and Plan for All Diagnoses:: Patient has essentially uncomplicated diverticulitis which is showing improvement with medical/nonsurgical management. May be able to transition to oral antibiotics and complete as outpatient management soon.
--- NOTE | 2018-08-27 07:26 | Progress Note ---
Internal Medicine - PN: Subj *Date: 08/27/18 *Time: 17:52 Interval history: Ms. batres is a 68-year-old female with diverticulitis who did well overnight. She is tolerating clears. Denies any significant abdominal pain, fevers, nausea vomiting, diarrhea. Hemodynamically stable. Exam Vital signs and Labs for Last 24 Hours: Temp Pulse Resp BP Pulse Ox 98.0 F 67 18 101/46 L 97 08/27/18 04:00 08/27/18 04:00 08/27/18 04:00 08/27/18 04:00 08/27/18 04:00 Laboratory Results - last 24 hr 08/26/18 10:55: POC Glucose 118 H 08/26/18 17:03: POC Glucose 83 08/26/18 21:22: POC Glucose 103 08/27/18 05:46: POC Glucose 113 H I & O for Last 24 hours: Intake & Output 08/24/18 08/25/18 08/26/18 08/27/18 23:59 23:59 23:59 23:59 Intake Total 3972 / 3972 1629 / 1629 Output Total 300 / 300 1400 / 1400 Balance 3672 / 3672 229 / 229 Weight 83.007 kg 86.239 kg 86.239 kg Microbiology Reports for the Last 24 Hours: Microbiology 08/25/18 23:34 Urine,Clean Catch Urine Culture - Preliminary NO GROWTH AFTER 24 HOURS Narrative: Patient is alert, oriented x3. No jaundice. Lungs clear, no wheeze or rhonchi heart rate regular, no murmurs Abdomen soft, slight tenderness in the left lower quadrant but no rebound or guarding. No edema or clubbing or cyanosis. No rash. neurologic exam intact. Assessment and Plan (1) Diverticulitis Current visit: Yes Status: Acute Category: Medical Code(s): K57.92 - Diverticulitis of intestine, part unspecified, without perforation or abscess without bleeding (2) UTI (urinary tract infection) Current visit: Yes Status: Acute Qualifiers: Urinary tract infection type: site unspecified Hematuria presence: without hematuria Qualified Code(s): N39.0 - Urinary tract infection, site not specified Category: Medical Code(s): N39.0 - Urinary tract infection, site not specified - Assessment and plan all Dx Assessment and Plan for all problems:: Continue current antibiotics. Transition to p.o. Flagyl. Continue IV Levaquin. Advance diet today to full liquid. Surgery continues to follow along, appreciate recommendations. If continues to progress well on diet advancement, will transition to all oral antibiotics tomorrow and likely discharge home. He needs to require inpatient management
[2018-08-27 07:59] LABS: Albumin Level 2.8 gm/dL (3.4-5.0); Albumin/Globulin Ratio 0.8 (1.1-1.8); Anion Gap 13.1 mEq/L (5-15); Bilirubin,Total 0.6 mg/dL (0.2-1.0); Calcium 8.2 mg/dL (8.5-10.1); Globulin 3.5 gm/dl (1.3-3.2); Potassium 4.1 mmoL/L (3.5-5.1); Total Protein,Serum 6.3 gm/dL (6.4-8.2)
[2018-08-27 08:33] LABS: Basophils % 0.4 % (0.1-2.0); Eosinophils # 0.1 K/mm3 (0.0-0.4); Eosinophils % 0.7 % (0.1-12.0); Hematocrit 36.1 % (37.0-47.0); Hemoglobin 11.4 g/dL (12.2-16.2); Lymphocytes # 1.4 K/mm3 (0.7-4.5); Mean Corpuscular HGB Conc 31.6 g/dL (31.8-35.4); Mean Corpuscular Hemoglobin 28.8 pg (27.0-31.2); Monocytes # 0.4 K/mm3 (0.1-1.0); Monocytes % 5.7 % (1.7-9.3); Neutrophils # 5.4 K/mm3 (1.8-7.8); Neutrophils % 74.2 % (37.0-80.0); Platelet Count 215 K/mm3 (142-424); Red Blood Count 3.97 M/mm3 (4.20-5.40); Red Cell Distribution Width 13.1 % (11.5-17.5); White Blood Count 7.3 K/mm3 (4.8-10.8)
--- NOTE | 2018-08-28 07:04 | Progress Note ---
Subjective Narrative: Patient has felt well and tolerating full liquids without any abdominal pain. However, had episode of nausea this morning. Patient states, "I was hoping to go home today." Exam Vital signs and Labs for Last 24 Hours: Temp Pulse Resp BP Pulse Ox 98.0 F 58 L 16 109/58 L 98 08/28/18 04:00 08/28/18 04:00 08/28/18 04:00 08/28/18 04:00 08/28/18 04:00 Laboratory Results - last 24 hr 08/27/18 07:12: WBC 7.3 D, RBC 3.97 L, Hgb 11.4 L, Hct 36.1 L, MCV 91.0, MCH 28.8, MCHC 31.6 L, RDW 13.1, Plt Count 215, MPV 8.0, Neut % (Auto) 74.2, Lymph % (Auto) 19.0, [place] % (Auto) 5.7, Eos % (Auto) 0.7, Baso % (Auto) 0.4, Neut # (Auto) 5.4, Lymph # (Auto) 1.4, [place] # (Auto) 0.4, Eos # (Auto) 0.1, Baso # (Auto) 0.0 08/27/18 07:12: Sodium 143, Potassium 4.1, Chloride 110 H, Carbon Dioxide 24, Anion Gap 13.1, BUN 8 D, Creatinine 0.89, Estimated Creat Clear 73, Estimated GFR 63, Est GFR ( Amer) 76, Glucose 117 H, Calcium 8.2 L, Total Bilirubin 0.6, AST 14 L, ALT 15, Alkaline Phosphatase 74, Total Protein 6.3 L, Albumin 2.8 L D, Globulin 3.5 H, Albumin/Globulin Ratio 0.8 L 08/27/18 11:51: POC Glucose 104 08/27/18 16:20: POC Glucose 93 08/27/18 21:00: POC Glucose 92 08/28/18 06:31: POC Glucose 112 H I & O for Last 24 hours: Intake & Output 08/25/18 08/26/18 08/27/18 08/28/18 11:59 11:59 11:59 11:59 Intake Total 1200 / 1200 5151 / 5151 5017 / 5017 Output Total 1700 / 1700 2125 / 2125 Balance 1200 / 1200 3451 / 3451 2892 / 2892 Weight 190 lb 2 oz 190 lb 2 oz 190 lb 3 oz Microbiology Reports for the Last 24 Hours: Microbiology 08/26/18 01:05 Blood Blood Culture - Preliminary NO GROWTH AFTER 48 HOURS 08/26/18 01:05 Blood Blood Culture - Preliminary NO GROWTH AFTER 48 HOURS 08/25/18 23:34 Urine,Clean Catch Urine Culture - Final Multiple organisms, suggests contamination. - *Routine Abdominal Exam Present: soft. Absent: tenderness Progress Note: A&P (1) Diverticulitis Status: Acute Current Visit: Yes (2) UTI (urinary tract infection) Status: Acute Current Visit: Yes Assessment and Plan for All Diagnoses:: Transition to oral antibiotics and possible discharge home soon for continued outpatient management.
--- NOTE | 2018-08-28 08:41 | Discharge Summary ---
General - General Admission date:: 08/26/18 Discharge date: 08/28/18 HPI HPI: 68-year-old white female with good functional status at home who is had increasing problems with insidious abdominal pain over the past couple of weeks. Thought she had a urinary tract infection and presented to the emergency department. Did indeed have a UTI but also CT scanning showed evidence of significant sigmoid diverticulitis with evidence of microperforation. She was admitted to hospital for further diagnostic testing. Is morning she feels somewhat better. Hospital Course Hospital Course: Patient was admitted, CT scan showed evidence of diverticulitis with microperforations. She was admitted to hospital, aggressive IV antibiotic therapy and steroids were undertaken, and surgery consult recommended conservative therapy. Patient did well over the next couple of days, transitioned to p.o. antibiotics and slowly feedings were reintroduced. She did well with this and this morning is feeling better. Increasing functional status, improving abdominal pain and no fevers. Plan will be to discharge home with antibiotics and steroids as noted, close follow-up in my office. She will be scheduled with surgery follow-up to reevaluate for colonoscopy in the next 4 to 5 weeks. Objective Vital signs: Temp Pulse Resp BP Pulse Ox 98.1 F 52 L 18 118/57 L 100 08/28/18 07:57 08/28/18 07:57 08/28/18 07:57 08/28/18 07:57 08/28/18 07:57 Narrative: Patient is pleasant and talkative, lungs clear. Heart rate regular, abdomen soft, very minimal tenderness, vastly improved. No edema or clubbing. Moves all extremities well. ENT exam clear, no JVD. Oropharynx clear. Results Labs on day of discharge: Labs from last 24 hours 08/28/18 08/27/18 08/27/18 06:31 21:00 16:20 WBC RBC Hgb Hct MCV MCH MCHC RDW Plt Count MPV Neut % (Auto) Lymph % (Auto) [place] % (Auto) Eos % (Auto) Baso % (Auto) Neut # (Auto) Lymph # (Auto) [place] # (Auto) Eos # (Auto) Baso # (Auto) POC Glucose 112 H 92 93 08/27/18 08/27/18 11:51 07:12 WBC 7.3 D RBC 3.97 L Hgb 11.4 L Hct 36.1 L MCV 91.0 MCH 28.8 MCHC 31.6 L RDW 13.1 Plt Count 215 MPV 8.0 Neut % (Auto) 74.2 Lymph % (Auto) 19.0 [place] % (Auto) 5.7 Eos % (Auto) 0.7 Baso % (Auto) 0.4 Neut # (Auto) 5.4 Lymph # (Auto) 1.4 [place] # (Auto) 0.4 Eos # (Auto) 0.1 Baso # (Auto) 0.0 POC Glucose 104 Preliminary micro results at discharge 08/26/18 01:05 Blood Culture - Preliminary Blood NO GROWTH AFTER 48 HOURS 08/26/18 01:05 Blood Culture - Preliminary Blood NO GROWTH AFTER 48 HOURS DS: Diagnosis - Discharge Diagnosis (1) Diverticulitis Status: Acute (2) UTI (urinary tract infection) Status: Ruled-out Discharge Plan - Patient Discharge Instructions ACTIVITY: Continue current activity DIET: continue same diet Patient Instructions: Urinary Tract Infection, Diverticulitis, Low-Fiber/Low-Residue Diet, DI for Diverticulitis, DI for Urinary Tract Infection (UTI), DI for Diverticulosis - Follow up Plan Follow up with: Karlo Bass MD [Primary Care Provider] - 1 week Anoop Lemons MD [Staff Physician] - 1 month Disposition: Home, Self-Snf Medications: Home Medications Medication Instructions Recorded Confirmed Type calcium carbonate 500 mg calcium 500 mg PO BID tab 10/02/17 08/26/18 History (1,250 mg) tablet diclofenac sodium 75 mg 75 mg PO BID 10/02/17 08/26/18 History tablet,delayed release glucosamine HCl 1,500 mg tablet 1,500 mg PO DAILY 10/02/17 08/26/18 History losartan 25 mg tablet 25 mg PO DAILY 10/02/17 08/26/18 History metformin 500 mg tablet 500 mg PO DAILY 10/02/17 08/26/18 History simvastatin 40 mg tablet 40 mg PO HS 10/02/17 08/26/18 History vitamin B12 500 mcg-folic acid 400 1 tab PO DAILY 10/02/17 08/26/18 History mcg tablet Fluticasone Propionate 2 spry NS DAILY 08/26/18 08/26/18 History Meloxicam 15 mg PO DAILY 08/26/18 08/26/18 History levoFLOXacin [Levaquin 500mg 500 mg PO DAILY #7 tab 08/28/18 Rx tab] metroNIDAZOLE [Flagyl 500mg 500 mg PO TID #21 tab 08/28/18 Rx Tablet] predniSONE [Deltasone 20mg 20 mg PO BID 7 Days #14 tab 08/28/18 Rx tablet] Prescriptions/Medication Reconciliation: New predniSONE [Deltasone 20mg tablet] 20 mg PO BID 7 Days #14 tab metroNIDAZOLE [Flagyl 500mg Tablet] 500 mg PO TID #21 tab levoFLOXacin [Levaquin 500mg tab] 500 mg PO DAILY #7 tab Continued simvastatin 40 mg tablet 40 mg PO HS metformin 500 mg tablet 500 mg PO DAILY glucosamine HCl 1,500 mg tablet 1,500 mg PO DAILY calcium carbonate 500 mg calcium (1,250 mg) tablet 500 mg PO BID tab losartan 25 mg tablet 25 mg PO DAILY vitamin B12 500 mcg-folic acid 400 mcg tablet 1 tab PO DAILY Fluticasone Propionate 2 spry NS DAILY Meloxicam 15 mg PO DAILY Discontinued diclofenac sodium 75 mg tablet,delayed release 75 mg PO BID
== END 2018-08-28 09:38 | disposition home or self-care (01) | DRG 392 ==
LOC: 2ND 22:37 → ER 22:37 → 2ND 08-26 01:09 → OBSVTOIN 08-26 01:58 → 2ND 08-26 02:00
PROVIDERS: ADMIT Emergency Medicine; ATTEND Internal Medicine Adolescent Medicine
CPT/HCPCS: 36415; 74176; 80048; 80053; 81001; 82150; 82962; 83605; 83690; 85007; 85025; 85651; 86140; 87040; 87086; 96365; 96366; 96375; 99284; J1956; J2405

== ENCOUNTER → 2018-11-06 08:09 | Outpatient (CLI) | payer MEDICARE, SELFPAY ==
--- NOTE | 2018-11-06 08:10 | FL_ITS ---
PROCEDURE: FL BARIUM ENEMA CLINICAL INDICATION: diverticulitis Abdominal pain COMPARISON: [id number] CT abdomen pelvis wo con from 08/25/2018 FINDINGS: Fluoroscopy time: 3 minutes [employer] exam is unremarkable. The colon is visualized from rectum to cecum including distal ileum. Extensive diverticulosis is present involving the sigmoid colon. No annular constricting lesions, polypoid filling defects, or mucosal abnormalities are evident. There is diverticulosis of the descending colon as well. The sigmoid colon is tortuous and redundant IMPRESSION: Extensive diverticulosis of the descending and sigmoid colon otherwise negative Dictated by: Peter Cristobal MD 11/06/2018 16:12 Signed by: <Electronically signed by Peter Cristobal MD in [place]> 11/06/2018 16:12
== END ==
PROVIDERS: PCP Internal Medicine Adolescent Medicine; Visit Provider Surgery
DX: K57.92 Diverticulitis of intestine, part unspecified, without perforation or abscess without bleeding (principal); Z86.010 Personal history of colon polyps
CPT/HCPCS: 74270

== ENCOUNTER → 2019-02-17 09:14 | Outpatient (CLI) | payer MEDICARE, SELFPAY ==
[2019-02-17 09:38] LABS: Basophils % 0.4 % (0.1-2.0); Eosinophils # 0.1 K/mm3 (0.0-0.4); Eosinophils % 1.4 % (0.1-12.0); Hematocrit 41.4 % (37.0-47.0); Hemoglobin 12.7 g/dL (12.2-16.2); Lymphocytes # 1.5 K/mm3 (0.7-4.5); Lymphocytes % 29.5 % (10-50); Mean Corpuscular HGB Conc 30.7 g/dL (31.8-35.4); Mean Corpuscular Hemoglobin 30.1 pg (27.0-31.2); Mean Corpuscular Volume 97.9 fl (81-99); Mean Platelet Volume 8.4 fl (7.4-10.4); Monocytes # 0.2 K/mm3 (0.1-1.0); Monocytes % 4.4 % (1.7-9.3); Neutrophils # 3.2 K/mm3 (1.8-7.8); Neutrophils % 64.4 % (37.0-80.0); Platelet Count 261 K/mm3 (142-424); Red Blood Count 4.23 M/mm3 (4.20-5.40); Red Cell Distribution Width 13.3 % (11.5-17.5)
[2019-02-17 10:28] LABS: Hemoglobin A1C 6.2 % (0.0-7.0)
[2019-02-17 11:15] LABS: Alanine Aminotransferase 12 U/L (12-78); Albumin Level 3.7 gm/dL (3.4-5.0); Albumin/Globulin Ratio 1.2 (1.1-1.8); Alkaline Phosphatase 93 U/L (46-116); Anion Gap 13.7 mEq/L (5-15); Aspartate Amino Transferase 11 U/L (15-37); Bilirubin,Total 0.4 mg/dL (0.2-1.0); Blood Urea Nitrogen 13 mg/dL (7-18); Carbon Dioxide 29 mmol/L (21.0-32.0); Chloride 106 mmol/L (98-107); Chol/HDL Ratio 2.2 (1-3.5); Cholesterol 188 mg/dL (140-200); Estimated Glomerular Filt Rate 62 ml/min (>60); GFR (African American) 75 ML/MIN (>60); Glucose 109 mg/dL (74-106); HDL Cholesterol 86 mg/dL (29-89); LDL Cholesterol 81 mg/dL (0-130); Potassium 4.7 mmoL/L (3.5-5.1); Sodium 144 mmol/L (136-145); Total Protein,Serum 6.7 gm/dL (6.4-8.2); Triglycerides 103 mg/dL (30-200); VLDL Cholesterol 21 mg/dL (0-40)
== END ==
PROVIDERS: Visit Provider Internal Medicine Adolescent Medicine
DX: I10 Essential (primary) hypertension (principal); E11.9 Type 2 diabetes mellitus without complications; Z79.84 Long term (current) use of oral hypoglycemic drugs
CPT/HCPCS: 36415; 80053; 80061; 83036; 85025

== ENCOUNTER → 2019-04-29 19:01 | Outpatient (CLI) | payer MEDICARE, SELFPAY | PROVIDERS: PCP Internal Medicine Adolescent Medicine; Visit Provider Nurse Practitioner | DX: N39.0 Urinary tract infection, site not specified (principal) | CPT/HCPCS: 87086 ==

== ENCOUNTER → 2019-05-21 10:23 | Outpatient (CLI) | payer MEDICARE, SELFPAY ==
[2019-05-21 11:17] LABS: Hemoglobin A1C 5.8 % (4.0-6.0)
[2019-05-21 11:40] LABS: Alanine Aminotransferase 9 U/L (12-78); Albumin Level 4.5 g/dl (3.5-5.0); Albumin/Globulin Ratio 1.8 (1.1-1.8); Alkaline Phosphatase 94 U/L (38-126); Anion Gap 17.2 mEq/L (5-15); Aspartate Amino Transferase 21 U/L (14-36); Bilirubin,Total 0.4 mg/dl (0.2-1.3); Blood Urea Nitrogen 17 mg/dl (7-17); Calcium 10.3 mg/dl (8.4-10.2); Carbon Dioxide 22 mmol/L (22.0-30.0); Chloride 106 mmol/L (98-107); Chol/HDL Ratio 2.2 (1-3.5); Cholesterol 183 mg/dl (140-200); Estimated Glomerular Filt Rate 62 ml/min (>60); GFR (African American) 75 ML/MIN (>60); Globulin 2.5 g/dL (1.3-3.2); Glucose 120 mg/dl (74-100); HDL Cholesterol 85 mg/dl (40-60); Potassium 4.2 mmoL/L (3.5-5.1); Sodium 141 mmol/L (136-145); Triglycerides 114 mg/dl (30-150); VLDL Cholesterol 23 mg/dL (0-40)
[2019-05-21 11:51] LABS: Direct LDL Cholesterol 80.12 mg/dL (100-129)
[2019-05-22 11:48] LABS: Vitamin D 25 Hydroxy 20.7 ng/mL (30.0-100.0)
== END ==
PROVIDERS: Visit Provider Internal Medicine Adolescent Medicine
DX: E78.5 Hyperlipidemia, unspecified (principal); E55.9 Vitamin D deficiency, unspecified; N39.0 Urinary tract infection, site not specified; E11.9 Type 2 diabetes mellitus without complications; Z79.84 Long term (current) use of oral hypoglycemic drugs
CPT/HCPCS: 36415; 80053; 80061; 82652; 83036; 87086

== ENCOUNTER → 2019-11-06 09:58 | Outpatient (CLI) | payer MEDICARE, SELFPAY ==
[2019-11-06 10:47] LABS: Hemoglobin A1C 5.9 % (4.0-6.0)
== END ==
PROVIDERS: Visit Provider Internal Medicine Adolescent Medicine
DX: E11.9 Type 2 diabetes mellitus without complications (principal)
CPT/HCPCS: 36415; 83036

== ENCOUNTER 2020-04-18 22:15 | Emergency (ER) | payer MEDICARE, SELFPAY ==
[2020-04-18 22:17] VITALS: BP 131/65; PULSE 98; RESP 14; TEMP 37.3; O2SAT 99; BMI 30.6
[2020-04-18 23:00] VITALS: BP 137/69; PULSE 80; RESP 17; O2SAT 98
[2020-04-18 23:00] LABS: Basophils % 0.7 % (0.1-2.0); Eosinophils # 0.3 K/mm3 (0.0-0.4); Hematocrit 46.5 % (37.0-47.0); Hemoglobin 15.4 g/dL (12.2-16.2); Lymphocytes # 0.5 K/mm3 (0.7-4.5); Mean Corpuscular HGB Conc 33.1 g/dL (31.8-35.4); Mean Corpuscular Hemoglobin 30.4 pg (27.0-31.2); Mean Corpuscular Volume 91.8 fl (81-99); Mean Platelet Volume 8.6 fl (7.4-10.4); Monocytes # 0.3 K/mm3 (0.1-1.0); Monocytes % 5.8 % (1.7-9.3); Neutrophils # 3.5 K/mm3 (1.8-7.8); Neutrophils % 76.5 % (37.0-80.0); Platelet Count 191 K/mm3 (142-424); Red Blood Count 5.07 M/mm3 (4.20-5.40); Red Cell Distribution Width 13.9 % (11.5-17.5); White Blood Count 4.5 K/mm3 (4.8-10.8)
[2020-04-18 23:10] LABS: Alanine Aminotransferase 15 U/L (12-78); Albumin Level 4.9 g/dl (3.5-5.0); Albumin/Globulin Ratio 1.5 (1.1-1.8); Alkaline Phosphatase 107 U/L (38-126); Anion Gap 13.3 mEq/L (5-15); Aspartate Amino Transferase 32 U/L (14-36); Bilirubin,Total 0.3 mg/dl (0.2-1.3); Blood Urea Nitrogen 9 mg/dl (7-17); Calcium 9.6 mg/dl (8.4-10.2); Carbon Dioxide 24 mmol/L (22.0-30.0); Chloride 106 mmol/L (98-107); Creatinine Clearance Estimated 65 mL/min (50-200); Estimated Glomerular Filt Rate 55 ml/min (>60); GFR (African American) 66 ML/MIN (>60); Globulin 3.3 g/dL (1.3-3.2); Glucose 131 mg/dl (74-100); Potassium 4.3 mmoL/L (3.5-5.1); Sodium 139 mmol/L (136-145); Total Protein,Serum 8.2 g/dl (6.3-8.2)
[2020-04-18 23:15] LABS: C-Reactive Protein 15.1 mg/L (0-4)
[2020-04-18 23:24] LABS: Erythrocyte Sedimentation Rate 16 mm/hr (0-30)
[2020-04-18 23:29] LABS: Procalcitonin 0.196 ng/mL (0.0-2.0)
[2020-04-18 23:30] VITALS: BP 140/82; PULSE 79; RESP 17; O2SAT 98
--- NOTE | 2020-04-18 23:33 | HMH.EDNVD ---
ED Disposition Clinical Impression: Medication adverse effect Qualifiers: Encounter type: initial encounter Qualified Code(s): T50.905A - Adverse effect of unspecified drugs, medicaments and biological substances, initial encounter Disposition: Home, Self-Care Condition on Discharge: Good Instructions: DI for Nausea -- Adult Additional Instructions: fluids and call pcp for follow up Prescriptions: ondansetron HCL [Zofran 4mg Tab] 4 mg PO TID #21 tab Transmission Status: Pending to Clinic Pharmacy [facility] Referrals: Karlo Bass MD [Primary Care Provider] - - Critical Care Critical Care Time: No Attestation: On 04/18/20, the high probability of a clinically significant, sudden or life threatening deterioration of the following system(s) required my full and direct attention, intervention and personal management. The time I documented below is in addition to time spent performing reported procedures but includes the following listed in this critical care notation. Medical Decision Making - Medical Records Medical records reviewed: Yes: I reviewed the patient's medical records. - Efraín Inquiry Pt receiving controlled substance: No Vital Signs: 04/18/20 22:17 04/18/20 23:00 04/18/20 23:30 Temperature 99.1 F Temperature Source Oral Pulse Rate [Right] 98 H 80 79 Respiratory Rate 14 17 17 Blood Pressure [Right Arm] 131/65 137/69 140/82 Blood Pressure Mean [Right Arm] 87 91 101 Blood Pressure Source [Right Arm] Automatic Cuff Automatic Cuff Blood Pressure Position [Right Arm] Supine Supine 02 Sat by Pulse Oximetry 99 98 98 Oxygen Delivery Method Room Air Room Air - Lab Data Lab results reviewed: Yes: I reviewed the patient's lab results. Lab Results 04/18/20 22:50: WBC 4.5 L, RBC 5.07, Hgb 15.4, Hct 46.5, MCV 91.8, MCH 30.4, MCHC 33.1, RDW 13.9, Plt Count 191, MPV 8.6, Neut % (Auto) 76.5, Lymph % (Auto) 10.0, [place] % (Auto) 5.8, Eos % (Auto) 7.0, Baso % (Auto) 0.7, Neut # (Auto) 3.5, Lymph # (Auto) 0.5 L, [place] # (Auto) 0.3, Eos # (Auto) 0.3, Baso # (Auto) 0.0, ESR 16 04/18/20 22:50: Sodium 139, Potassium 4.3, Chloride 106, Carbon Dioxide 24, Anion Gap 13.3, BUN 9, Creatinine 1.00, Estimated Creat Clear 65, Estimated GFR 55 L, Est GFR ( Amer) 66, Glucose 131 H, Calcium 9.6, Total Bilirubin 0.3, AST 32, ALT 15, Alkaline Phosphatase 107, C-Reactive Protein 15.1 H, Total Protein 8.2, Albumin 4.9, Globulin 3.3 H, Albumin/Globulin Ratio 1.5, Procalcitonin 0.196 Result diagrams: 04/18/20 22:50 04/18/20 22:50 Orders (Tests/Meds): ED MEDICATIONS Generic Name Dose Route Start Last Admin Trade Name Freq PRN Reason Stop Dose Admin Sodium Chloride 1,000 mls @ 999 mls/hr 04/18/20 23:00 04/18/20 22:53 Sod Chlor 0.9% 1000ml Bag IV 04/19/20 00:00 999 mls/hr .Q1H1M SHAYLEE Administration Discontinued Medications Generic Name Dose Route Start Last Admin Trade Name Freq PRN Reason Stop Dose Admin Acetaminophen 1,000 mg 04/18/20 22:49 04/18/20 22:53 Acetaminophen 500mg Tab PO 04/18/20 22:50 1,000 mg ONCE ONE Administration Ketorolac Tromethamine 30 mg 04/18/20 22:49 04/18/20 22:53 Ketorolac 30mg/Ml Vial IV 04/18/20 22:50 30 mg ONCE ONE Administration Ondansetron HCl 4 mg 04/18/20 22:49 04/18/20 22:53 Ondansetron 4mg/2ml Vial IV 04/18/20 22:50 4 mg ONCE ONE Administration ORDERS Category Date Time Status Covid-19 Nasal PCR ([facility]) Routine Lab 04/18/20 23:05 Received - Reevaluation(s) Time: 23:37 Reevaluation #1: improved Medical Decision Narrative: will ask pt to follow up with pcp Nausea/Vomiting/Diarrhea HPI - General Chief complaint: Nausea/Vomiting/Diarrhea Stated complaint: nausea, covid symptoms Time Seen by Provider: 04/18/20 23:00 Mode of Arrival: Ambulatory Source of Information: Patient, Medical Record Limitations: No Limitations Description of Symptoms (Recalled from ER Triage Doc. by RN): pt c/o n/v, chills,
[2020-04-18 23:44] VITALS: BP 137/85; PULSE 87; RESP 14; TEMP 37.1; O2SAT 98
== END 2020-04-18 23:48 | disposition home or self-care (01) ==
PROVIDERS: Emergency Provider Emergency Medicine; PCP Internal Medicine Adolescent Medicine
DX: R50.83 Postvaccination fever (principal); T50.B95A Adverse effect of other viral vaccines, initial encounter; Y92.019 Unspecified place in single-family (private) house as the place of occurrence of the external cause; E11.9 Type 2 diabetes mellitus without complications; I10 Essential (primary) hypertension; Z20.822 Contact with and (suspected) exposure to COVID-19; Z87.891 Personal history of nicotine dependence; Z79.899 Other long term (current) drug therapy
CPT/HCPCS: 80053; 84145; 85025; 85651; 86140; 96365; 96375; 99282; J2405; U0003

== ENCOUNTER 2020-04-22 15:25 | Emergency (ER) | payer MEDICARE, SELFPAY ==
[2020-04-22 15:36] VITALS: BP 150/33; PULSE 76; RESP 20; TEMP 36.7; O2SAT 100; BMI 30.6
[2020-04-22 15:48] VITALS: BP 150/73; PULSE 76; RESP 20; TEMP 36.6; O2SAT 100; BMI 30.4
--- NOTE | 2020-04-22 16:06 | HMH.EDUTC ---
[facility] Disposition Clinical Impression: Rash and nonspecific skin eruption Disposition: Home, Self-Care Condition on Discharge: Good Instructions: DI for Nausea -- Adult, DI for Rash Additional Instructions: ? Avoid fruit juices, as these do not replace minerals and can actually increase diarrhea. ? Children and adults can use sports drinks to replenish electrolytes. Younger children and infants should use products formulated for children, like oral rehydration solutions. ? Eat food in small amounts and let your stomach recover. ? Get lots of rest. You may feel tired or weak. ? No greasy or fried foods for the next 24-48 hours BRAT diet Bananas Rice Apples and [place] ? Make sure to drink plenty of liquids ? Return if needed ? Straight to ER if any life threatening symptoms ? Zofran as prescribed ? Follow up with family doctor in the next 48-72 hours if no improvement or any worsening of symptoms Follow up with your Family Doctor as soon as possible if symptoms persist Referrals: Karlo Bass MD [Primary Care Provider] - As needed Time of Disposition: 17:27 Medical Decision Making - Efraín Inquiry Pt receiving controlled substance: No Efraín was queried for this patient: No Vital Signs: 04/22/20 15:36 04/22/20 15:48 04/22/20 17:28 Temperature 98.0 F 98 F 98 F Temperature Source Oral Tympanic Tympanic Pulse Rate 74 Pulse Rate [Left Radial] 76 76 Respiratory Rate 20 20 14 Blood Pressure 140/76 Blood Pressure [Right Arm] 150/33 H 150/73 H Blood Pressure Mean [Right Arm] 72 98 Blood Pressure Source Automatic Cuff Blood Pressure Source [Right Arm] Automatic Cuff Automatic Cuff Blood Pressure Position Sitting Blood Pressure Position [Right Arm] Sitting Sitting 02 Sat by Pulse Oximetry 100 100 Oxygen Delivery Method Room Air Room Air - Lab Data Lab results reviewed: Yes: I reviewed the patient's lab results. Lab Results 04/22/20 16:10: Sodium 134 L, Potassium 4.1, Chloride 102, Carbon Dioxide 24, Anion Gap 12.1, BUN 17, Creatinine 0.90, Estimated Creat Clear 64, Estimated GFR 62, Est GFR ( Amer) 75, Glucose 131 H, Calcium 9.1, Total Bilirubin 0.5, AST 28, ALT 16, Alkaline Phosphatase 99, Total Protein 7.0, Albumin 4.0, Globulin 3.0, Albumin/Globulin Ratio 1.3 04/22/20 16:10: WBC 5.0, RBC 4.56, Hgb 13.6, Hct 41.9, MCV 91.9, MCH 29.8, MCHC 32.5, RDW 13.6, Plt Count 145, MPV 8.1, Neut % (Auto) 72.7, Lymph % (Auto) 19.8, [place] % (Auto) 5.0, Eos % (Auto) 2.2, Baso % (Auto) 0.4, Neut # (Auto) 3.7, Lymph # (Auto) 1.0, [place] # (Auto) 0.3, Eos # (Auto) 0.1, Baso # (Auto) 0.0 Result diagrams: 04/22/20 16:10 04/22/20 16:10 Orders (Tests/Meds): ORDERS Category Date Time Status Covid-19 Nasal PCR ([facility]) Routine Lab 04/22/20 17:35 Received Medical Decision Narrative: Discussed patient and symptoms with ED physician Dr Narvaez and she viewed rash and labs and agreed Patient a diabetic and to watch rash for improvement and follow up with her PCP tomorrow in the office if no improvement or any worsening of symptoms due to patient reporting improvement or rash on her face [facility] HPI - General Stated complaint: rash all over body Time Seen by Provider: 04/22/20 16:06 Mode of Arrival: Ambulatory Source of Information: Patient Limitations: No Limitations Description of Symptoms (Recalled from Triage Doc. by RN): pt has a rash all over her abd, back and down her legs. its redish purple and just barely raised. HEENT Symptoms (Recalled from RN notes): No Resp Symptoms (Recalled from RN notes): No Skin Symptoms (Recalled from RN notes): Yes (rash on back, abd and down legs) MS Symptoms (Recalled from RN notes): No Functional Status (Recalled from RN notes): na - History of Present Illness Provider Complaint: Patient states that she had her COVID shot last week States that she noticed she wasnt feeling well over the weekend having body aches, chills and nausea and went to the ED States that she was check
[2020-04-22 16:32] LABS: Alanine Aminotransferase 16 U/L (12-78); Albumin/Globulin Ratio 1.3 (1.1-1.8); Alkaline Phosphatase 99 U/L (38-126); Aspartate Amino Transferase 28 U/L (14-36); Bilirubin,Total 0.5 mg/dl (0.2-1.3); Blood Urea Nitrogen 17 mg/dl (7-17); Calcium 9.1 mg/dl (8.4-10.2); Carbon Dioxide 24 mmol/L (22.0-30.0); Creatinine Clearance Estimated 64 mL/min (50-200); Estimated Glomerular Filt Rate 62 ml/min (>60); GFR (African American) 75 ML/MIN (>60); Glucose 131 mg/dl (74-100); Potassium 4.1 mmoL/L (3.5-5.1); Sodium 134 mmol/L (136-145)
[2020-04-22 16:39] LABS: Anion Gap 12.1 mEq/L (5-15); Chloride 102 mmol/L (98-107)
[2020-04-22 16:58] LABS: Basophils % 0.4 % (0.1-2.0); Eosinophils # 0.1 K/mm3 (0.0-0.4); Eosinophils % 2.2 % (0.1-12.0); Hematocrit 41.9 % (37.0-47.0); Hemoglobin 13.6 g/dL (12.2-16.2); Lymphocytes % 19.8 % (10-50); Mean Corpuscular HGB Conc 32.5 g/dL (31.8-35.4); Mean Corpuscular Hemoglobin 29.8 pg (27.0-31.2); Mean Corpuscular Volume 91.9 fl (81-99); Mean Platelet Volume 8.1 fl (7.4-10.4); Monocytes # 0.3 K/mm3 (0.1-1.0); Neutrophils # 3.7 K/mm3 (1.8-7.8); Neutrophils % 72.7 % (37.0-80.0); Platelet Count 145 K/mm3 (142-424); Red Blood Count 4.56 M/mm3 (4.20-5.40); Red Cell Distribution Width 13.6 % (11.5-17.5)
[2020-04-22 17:28] VITALS: BP 140/76; PULSE 74; RESP 14; TEMP 36.6
== END 2020-04-22 17:43 | disposition home or self-care (01) ==
PROVIDERS: Emergency Provider Nurse Practitioner; PCP Internal Medicine Adolescent Medicine
DX: Z20.822 Contact with and (suspected) exposure to COVID-19 (principal); R21 Rash and other nonspecific skin eruption; R11.0 Nausea; E11.65 Type 2 diabetes mellitus with hyperglycemia; I10 Essential (primary) hypertension
CPT/HCPCS: G0463; 80053; 85025; 99202; U0003

== ENCOUNTER → 2020-10-13 07:58 | Outpatient (CLI) | payer MEDICARE, SELFPAY ==
[2020-10-13 08:17] LABS: Basophils # 0.1 K/mm3 (0-0.2); Basophils % 1.4 % (0.1-2.0); Eosinophils # 0.2 K/mm3 (0.0-0.4); Eosinophils % 2.6 % (0.1-12.0); Hematocrit 42.5 % (37.0-47.0); Lymphocytes # 1.8 K/mm3 (0.7-4.5); Lymphocytes % 26.2 % (10-50); Mean Corpuscular HGB Conc 32.8 g/dL (31.8-35.4); Mean Corpuscular Hemoglobin 29.8 pg (27.0-31.2); Mean Corpuscular Volume 90.8 fl (81-99); Mean Platelet Volume 8.3 fl (7.4-10.4); Monocytes # 0.3 K/mm3 (0.1-1.0); Monocytes % 3.9 % (1.7-9.3); Neutrophils # 4.6 K/mm3 (1.8-7.8); Neutrophils % 65.9 % (37.0-80.0); Platelet Count 230 K/mm3 (142-424); Red Blood Count 4.68 M/mm3 (4.20-5.40); Red Cell Distribution Width 13.8 % (11.5-17.5)
[2020-10-13 08:51] LABS: Chloride 106 mmol/L (98-107); Potassium 4.8 mmoL/L (3.5-5.1); Sodium 143 mmol/L (136-145)
[2020-10-13 08:54] LABS: Alanine Aminotransferase 10 U/L (12-78); Albumin Level 4.6 g/dl (3.5-5.0); Albumin/Globulin Ratio 1.9 (1.1-1.8); Alkaline Phosphatase 99 U/L (38-126); Anion Gap 12.8 mEq/L (5-15); Aspartate Amino Transferase 27 U/L (14-36); Bilirubin,Total 0.7 mg/dl (0.2-1.3); Blood Urea Nitrogen 12 mg/dl (7-17); Calcium 9.9 mg/dl (8.4-10.2); Carbon Dioxide 29 mmol/L (22.0-30.0); Cholesterol 235 mg/dl (140-200); Estimated Glomerular Filt Rate 71 ml/min (>60); GFR (African American) 86 ML/MIN (>60); Globulin 2.4 g/dL (1.3-3.2); Glucose 114 mg/dl (74-100); Triglycerides 112 mg/dl (30-150); VLDL Cholesterol 22 mg/dL (0-40)
[2020-10-13 08:55] LABS: Chol/HDL Ratio 2.7 (1-3.5); HDL Cholesterol 87 mg/dl (40-60)
[2020-10-13 09:02] LABS: Hemoglobin A1C 5.6 % (4.0-6.0)
[2020-10-13 09:05] LABS: Direct LDL Cholesterol 110.79 mg/dL (100-129)
[2020-10-13 09:42] LABS: 25-OH Vitamin D, Total 36.2 ng/mL (30-100)
== END ==
PROVIDERS: Visit Provider Internal Medicine Adolescent Medicine
DX: E11.9 Type 2 diabetes mellitus without complications (principal); E78.5 Hyperlipidemia, unspecified; E55.9 Vitamin D deficiency, unspecified; Z79.84 Long term (current) use of oral hypoglycemic drugs
CPT/HCPCS: 36415; 80053; 80061; 82306; 83036; 85025

== ENCOUNTER → 2020-10-26 08:41 | Outpatient (CLI) | payer MEDICARE, SELFPAY ==
[2020-10-26 09:57] LABS: Free Thyroxine Index 2.4 ug/dL (5.93-13.13); T4 (Thyroxine) 8.4 ug/dl (5.53-11.0); Triiodothryronine (T3) Uptake 29 % (23.5-40.5)
[2020-10-26 10:10] LABS: Thyroid Stimulating Hormone 2.44 uIU/mL (0.465-4.68)
== END ==
PROVIDERS: Visit Provider Internal Medicine Adolescent Medicine
DX: R53.82 Chronic fatigue, unspecified (principal)
CPT/HCPCS: 36415; 84436; 84443; 84479

== ENCOUNTER → 2021-09-02 13:50 | Outpatient (CLI) | payer MEDICARE, SELFPAY ==
--- NOTE | 2021-09-02 13:50 | US_ITS ---
FINAL REPORT CLINICAL HISTORY: pelvic pain, endometrial thickening on postmenopausal patient FINDINGS: Transvaginal sonographic images of the pelvis were obtained. The uterus measures 6.5 x 2.8 by 3.9 cm. There is a 1.9 cm uterine fibroid. The endometrium measures 8 mm, which is thickened. The right ovary measures 1.8 cm in length and left ovary measures 1.6 cm in length. There is a hyperechoic focus arising from the right ovary of uncertain etiology which could represent calcification. There is no evidence of free fluid. IMPRESSION: Endometrial thickening. 1.9 cm uterine fibroid. Hyperechoic right ovarian focus which could represent calcification. Reviewed, Interpreted and Dictated by Jonathan Joseph III, MD Transcribed by Sommer Oquendo Authenticated and [facility]
== END ==
PROVIDERS: PCP Internal Medicine Adolescent Medicine; Visit Provider Obstetrics & Gynecology
DX: R10.2 Pelvic and perineal pain (principal); R10.30 Lower abdominal pain, unspecified; R14.0 Abdominal distension (gaseous)
CPT/HCPCS: 76830

== ENCOUNTER → 2021-10-11 09:43 | Outpatient (CLI) | payer MEDICARE, SELFPAY ==
[2021-10-11 10:13] LABS: Basophils # 0.1 K/mm3 (0-0.2); Basophils % 0.8 % (0.1-2.0); Eosinophils # 0.1 K/mm3 (0.0-0.4); Hematocrit 43.8 % (37.0-47.0); Hemoglobin 13.9 g/dL (12.2-16.2); Lymphocytes # 1.6 K/mm3 (0.7-4.5); Lymphocytes % 24.7 % (10-50); Mean Corpuscular HGB Conc 31.7 g/dL (31.8-35.4); Mean Corpuscular Hemoglobin 30.1 pg (27.0-31.2); Mean Platelet Volume 8.2 fl (7.4-10.4); Monocytes # 0.3 K/mm3 (0.1-1.0); Monocytes % 4.9 % (1.7-9.3); Neutrophils # 4.4 K/mm3 (1.8-7.8); Neutrophils % 68.7 % (37.0-80.0); Platelet Count 271 K/mm3 (142-424); Red Cell Distribution Width 13.7 % (11.5-17.5); White Blood Count 6.4 K/mm3 (4.8-10.8)
== END ==
PROVIDERS: PCP Internal Medicine Adolescent Medicine; Visit Provider Obstetrics & Gynecology
DX: N92.0 Excessive and frequent menstruation with regular cycle (principal); R93.89 Abnormal findings on diagnostic imaging of other specified body structures; Z01.818 Encounter for other preprocedural examination; Z20.822 Contact with and (suspected) exposure to COVID-19
CPT/HCPCS: 36415; 85025; C9803; U0003; U0005

== ENCOUNTER 2021-10-13 06:34 | Day surgery (SDC) | payer MEDICARE, SELFPAY ==
[2021-10-10 13:18] VITALS: BMI 70.2
[2021-10-13] VITALS (10 sets, daily range): BP systolic 119–146; BP diastolic 60–79; PULSE 51–84; RESP 16–21; TEMP 36.1–36.6; O2SAT 96–100
--- NOTE | 2021-10-13 07:47 | HMH.ANESCL ---
[facility] Anesthesia Checklist - Patient Identification Patient Identification: Arm Band, Verbal (Name & ) - Structural Data Admitted From: Home Planned Operative Procedure/s: Hysteroscopy/D&C Consent for Planned Operative Procedure(s) Verified: Yes Verified Documents: Surgical Consent - NPO Status Verified Time NPO: 00:00 - Chart Verification Results Verified: CBC, BMP - Additional verifications Anesthesia Reactions: No Hx Blood Transfusions: No Blood Transfusion Reaction: No - Airway Assessment C-Spine Mobility Assessed: Yes TMJ Mobility Assessed: Yes Dentition: Good Dentition - Neurological Assessment Level of Consciousness: Awake, Alert, Appropriate - Anesthesia Plan Anesthesia Risk discussed: Yes ASA Class: II Anesthesia Type: General [facility] History I have reviewed the patient's past medical history: Yes Medical History: Reports:: Diabetes Mellitus Type 2, Hypertension Denies:: Cancer, Diabetes Mellitus Type 1, Internal Pacemaker, Lung Disease, MRSA, Seizures *Have you ever received a pneumonia vaccine?: Yes *Have you received a flu vaccine this season?: Yes Other Medical History: Denies: Blood Transfusion Reaction Anesthesia experience/problems:: none Laterality Cases: Bilateral: Tonsillectomy Other Surgeries: Yes: No Previous Surgery, Colonoscopy, Colon Resection, EGD, Tubal Ligation, Other. No: Pacemaker Amputation: No Fractures: No - *Social History Last grade of school completed: GED Smoking Status: Never smoker Tobacco Type: cigarettes # Packs/Day (cigarettes): 1 Alcohol Intake: never Alcohol Intake Frequency:: other Substance Use Type: denies use *Occupational Status:: retired Housing: house *Travel in the last 8 weeks: None Family Hx:: Cancer, Heart Attack
--- NOTE | 2021-10-13 09:02 | HMH.ANESI ---
[facility] Anesthesia Record Part I Intake, IV Amount: 800 Estimated blood loss (mL): 0 Urine output (mL): 0 Blood Pressure: 145/75 SaO2: 97 Pulse Rate: 84 Respiratory Rate: 21 Temperature: 97.9 F Patient is:: Drowsy, Oral/Nasal airway Stable to PACU at:: 09:00
--- NOTE | 2021-10-13 09:07 | HMH.OPNOTE ---
Date of procedure: 10/13/21 Pre-op Diagnosis:: 1. Pelvic pain in female 2. Thickened endometrium 3. Uterine prolapse 4. Cystocele, midline 5. Hypertension, unspecified type 6. Tobacco use Post-op Diagnosis:: 1. Pelvic pain in female 2. Thickened endometrium 3. Uterine prolapse 4. Cystocele, midline 5. Hypertension, unspecified type 6. Tobacco use 7. Endometrial polyp Procedure performed:: 1. Hysteroscopy, Dilation and Myosure curettage 2. Polypectomy with Myosure Surgeon:: Anne-Marie Monreal DO ADJUDICATION SPECIALIST:: Shanell Guaman Anesthesia: GETA Estimated blood loss (mL): 0 Clinical Note:: Ms Edie Meza is a very pleasant 71 yo female , [id number], who presents to [facility] for scheduled procedure. She complains of pelvic cramping, discomfort and bloating with and without vaginal pessary in place. Vaginal exam demonstrated uterine prolapse and cystocele. Pelvic ultrasound demonstrated small uterine fibroid 1.9 cm and thickened endometrium of 8 mm. Patient denies vaginal bleeding. She has an appointment with Dr. Curtis [facility]roGyn, in November for pelvic organ prolapse. Operative findings:: On bimanual exam, uterus was retroverted. No adnexal masses palpated. On hysteroscopic exam, large endometrial polyp and a second smaller polyp noted. Bilateral tubal ostia easily visualized after polypectomy. Grossly normal appearing postmenopausal endometrium. Operative note:: Risks, benefits and alternatives were discussed with the patient. Risks include but are not limited to bleeding, infection, uterine perforation and VTE. Patient voiced understanding and agreed to proceed. She was wheeled back to the operating room and placed under general anesthesia without difficulty. She was placed in dorsal lithotomy position and prepped and draped in the normal sterile fashion. Straight catheter was used to drain the bladder. A bimanual exam was performed. A weighted Auvard was placed in the vaginal vault. Single tooth tenaculum was placed on anterior lip of the cervix. Uterus sounded to 9. Sequential Alvaro dilators were used to dilate the cervical os. Hysteroscope was inserted through the cervix without difficulty. Endometrial cavity was evaluated. See findings above. Pictures were taken. Myosure was inserted through the hysteroscope. Polypectomy was performed with Myosure per protocol. Then, Myosure curettage was performed per protocol in a 360 degree fashion under direct visualization. Tissue will be sent to pathology for review. Pictures were taken. Hysteroscope with Myosure was removed. Instruments were removed from the vagina. Tenaculum site was noted to have small amount of oozing. Silver nitrate stick x 1 used without much improvement. Tenaculum site was suture ligated with 2-0 Chromic. Excellent hemostasis was noted. Patient was awaken from anesthesia without difficulty. She was transported to recovery room in stable condition. Patient will be discharged home when awake and ambulating. She was given postop instructions as well as instructions to follow-up in the office in 2 weeks. Condition: stable Disposition: same day Specimens:: 1. Endometrial polyp 2. Endometrial curettings Complications:: None
--- NOTE | 2021-10-13 10:07 | P.PN_ITS ---
[facility] Anesthesia Record Part II Discharge Time: 09:30 Destination: Surgical Day Care (OP Surgery) PACU nurse assessment reviewed?: Yes Patient Condition:: Good Anesthesia Complications:: None Swallowing reflex intact?: Yes Cyanosis?: No Blood Pressure: 137/78 Pulse Rate: 56 Temperature: 97.2 F Mental Status: Alert & Oriented Pain level:: 0 Nausea and/or vomitting:: None Intake, IV Amount: 0
== END 2021-10-13 10:09 | disposition home or self-care (01) ==
LOC: OR 06:35
PROVIDERS: PCP Internal Medicine Adolescent Medicine; Visit Provider Obstetrics & Gynecology
DX: N81.4 Uterovaginal prolapse, unspecified (principal); N84.0 Polyp of corpus uteri; R93.89 Abnormal findings on diagnostic imaging of other specified body structures; R10.2 Pelvic and perineal pain; Z72.0 Tobacco use; Z79.899 Other long term (current) drug therapy
CPT/HCPCS: 58558; 88305; J2405

== ENCOUNTER → 2022-07-17 16:07 | Outpatient (CLI) | payer MEDICARE, SELFPAY ==
--- NOTE | 2022-07-17 16:18 | MR_ITS ---
PROCEDURE INFORMATION: Exam: MR Head Without Contrast Exam date and time: 07/17/2022 4:57 PM Age: 72 years old Clinical indication: Other: Memory loss; Additional info: Memory loss. Headache. Intermittent dizziness TECHNIQUE: Imaging protocol: Magnetic resonance imaging of the head without contrast. COMPARISON: CT HEAD/BRAIN WO CON 03/03/2019 7:34 AM FINDINGS: Brain: No restricted diffusion within the brain to suggest an acute infarct. There are scattered foci of FLAIR hyperintensity within the cerebral white matter. There is no mass effect or restricted diffusion associated with these foci. In a patient this age, this likely represents chronic small vessel ischemic disease. No cerebral edema. No intracranial mass effect. Cerebral ventricles: There is mild to moderate prominence of the ventricles and sulci, compatible with atrophy. Bones/joints: There is diffuse nonspecific T1 hypointensity of the skull. This can be associated with hematopoietic hyperplasia, although additional pathology cannot be excluded. Paranasal sinuses: Minimal mucosal thickening of scattered ethmoid air cells. Mastoid air cells: No mastoid effusion. Orbital cavities: Bilateral orbital lens implants. Vasculature: Increased FLAIR signal intensity is visualized within the left transverse venous sinus, sigmoid venous sinus, and proximal left internal jugular vein. This is consistent with slow flow or thrombosis. Soft tissues: Unremarkable, as visualized. IMPRESSION: 1. No acute infarct. 2. Increased FLAIR signal intensity is visualized within the left transverse venous sinus, sigmoid venous sinus, and proximal left internal jugular vein. This is consistent with slow flow or thrombosis. Correlation with CTV or MRV with contrast is recommended, as clinically indicated. 3. Mild white matter disease, likely representing chronic small vessel ischemic disease. 4. Mild to moderate atrophy. 5. Additional findings described above.
== END ==
PROVIDERS: PCP Internal Medicine Adolescent Medicine; Visit Provider Internal Medicine Adolescent Medicine
DX: R41.3 Other amnesia (principal); R53.81 Other malaise; R53.83 Other fatigue
CPT/HCPCS: 70551

== ENCOUNTER → 2022-08-08 11:31 | Outpatient (CLI) | payer MEDICARE, SELFPAY ==
[2022-08-08 11:59] LABS: Blood Urea Nitrogen 11 mg/dl (7-17); Estimated Glomerular Filt Rate 62 ml/min (>60); GFR (African American) 74 ML/MIN (>60)
--- NOTE | 2022-08-08 12:58 | MR_ITS ---
FINAL REPORT CLINICAL HISTORY: MEMORY LOSS, CONFUSION short term memory problems x few months FINDINGS: Multiple projection images of the brain venous vasculature was performed with and without contrast. The raw data images were also reviewed. The superior sagittal sinus is widely patent. The transverse and sigmoid sinuses are patent. IMPRESSION: There is no evidence of dural venous thrombosis. Reviewed, Interpreted and Dictated by Fili Poole MD Transcribed by Liv Ornelas Authenticated and [facility]
== END ==
PROVIDERS: PCP Internal Medicine Adolescent Medicine; Visit Provider Internal Medicine Adolescent Medicine
DX: R41.3 Other amnesia (principal); R41.0 Disorientation, unspecified
CPT/HCPCS: 36415; 70546; 82565; 84520; A9576

== ENCOUNTER → 2022-12-05 09:29 | Outpatient (CLI) | payer MEDICARE, SELFPAY ==
--- NOTE | 2022-12-05 09:41 | XR_ITS ---
FINAL REPORT TECHNIQUE: Bone densitometry calculations of the lumbar spine and left hip were obtained. CLINICAL HISTORY: OSTEOPOROSIS FINDINGS: Using L1-4, the bone mineral density of the spine is 1.204 g/cm2, corresponding to T-score of 1.4 and a Z score of 3.7. This is within the range of 1 normal. Using the left hip, the bone mineral density of the femoral neck is 0.809 g/cm2, corresponding to a T-score of -0.4 and a Z-score of 1.6. This is within the range of normal. Using the right hip, the bone mineral density of the femoral neck is 0.759 g/cm2, corresponding to a T-score of -0.8 and a Z-score of 1.1. This is within the range of normal. NOTE: T-score: Standard deviation compared with peak bone mass of young adult mean. *Following the recommendations of the International Society of Bone densitometry, classification of hip BMD is based on the lower of two T-scores; total hip or femoral neck. IMPRESSION: 1. Bone mineral density of the lumbar spine and bilateral hips within the range of normal. Reviewed, Interpreted and Dictated by Noemy Bassett MD Transcribed by Rodger Mcclendon Authenticated and . [facility]
== END ==
PROVIDERS: PCP Internal Medicine Adolescent Medicine; Visit Provider Internal Medicine Adolescent Medicine
DX: Z78.0 Asymptomatic menopausal state (principal)
CPT/HCPCS: 77080

== ENCOUNTER 2022-12-12 09:00 | Outpatient (RCR) | payer MEDICARE, SELFPAY ==
--- NOTE | 2022-12-05 11:26 | HMH.PTOPEV ---
PT Outpatient Evaluation Rehab PT Outpatient Evaluation Start: 12/05/22 10:34 Freq: Status: Active Protocol: Document 12/05/22 10:34 KATELYN (Rec: 12/05/22 11:26 KATELYN [id number]) E-signed By Ashok Gaspar, PT Outpatient Therapy Subjective History Subjective History Pt reports insidious onset left pain beginning ~ 1 month ago. Pt reports global left shoulder pain, w/referred pain into mid-upper arm area. Pt reports 'popping', and limitations in ROM d/t pain. New diagnosis of cancer in past 12 No months? Chief Complaint Pain,Stiff,Clicks Symptom Type Ache,Dull Symptoms Relieved By Rest/Positioning Symptoms Aggravated By Physical Activity,Lifting Prior Functional Limitations Lifting,Housework Current Functional Limitations Lifting,Housework Symptom Description Constant but Variable Level of pain today (0-10) 2 Pain scale - at its best (0-10) 2 Pain scale - at its worst (0-10) 4 Shoulder/Elbow Eval Shoulder Objective Measurements Palpation Tenderness Shoulder Palpation Findings Tenderness,Trigger Point Shoulder Palpation Overall Comment 3/4 ant. RTC, 3/4 post. RTC, 1 -2/4 UT (all left) Posture Shoulder Posture Sitting Position (L) Rounded,(R) Rounded,(L) Forward,(R) Forward Shoulder Posture Standing Position (L) Rounded,(R) Rounded,(L) Forward,(R) Forward Scapula Posture Sitting Position (L) Protracted,(R) Protracted Scapular Posture Standing Position (L) Protracted,(R) Protracted Shoulder ROM Left Shoulder Abduction Active Range of 0-71 Motion (degrees) Shoulder Abduction Passive Range of 0-90 Motion (degrees) Shoulder Flexion Active Range of Motion 0-95 (degrees) Query Text: Shoulder Flexion Passive Range of Motion 0-100 (degrees) Shoulder MMT Shoulder Abduction Strength Grade 3+ Fair+ Shoulder Flexion Strength Grade 3+ Fair+ Shoulder External Rotation Strength 4- Good- Grade Shoulder Internal Rotation Strength 4 Good Grade Elbow Objective Measurements Elbow MMT Left Elbow Flexion Strength Grade 4 Good Elbow Extension Strength Grade 4 Good QuickDASH Activities Please rate your ability to do the following activities in the last week by selecting the number below the appropriate response. 1. Open a tight or new jar. No difficulty 2. Do heavy clinic office coordinator (e.g., wash No difficulty platt, floors). 3. Carry a shopping bag or briefcase. No difficulty
== END 2022-12-12 09:05 | disposition home or self-care (01) ==
LOC: PT 09:00
PROVIDERS: PCP Internal Medicine Adolescent Medicine; Visit Provider Internal Medicine Adolescent Medicine
DX: M25.512 Pain in left shoulder (principal)
CPT/HCPCS: 97010; 97014; 97110; 97163; G0283

== ENCOUNTER 2023-11-22 10:41 | Outpatient (POV) | payer MEDICARE, SELFPAY ==
[2023-11-22 11:06] VITALS: BP 140/53; PULSE 60; RESP 18; O2SAT 100; BMI 30.1
--- NOTE | 2023-11-22 11:11 | EXP.PAIN.OV ---
HPI Data of Consult Patient: new to practice Consult date: 11/22/23 Requesting Physician: Grisel Barron APRN Primary Care Provider: Karlo Bass MD Consult Narrative Reason for consult: Right knee pain History of present illness: Ms. Meza is a 73 year old female who presents today as a new patient. She is a referral from Dr. Bass's office. Today she rates her pain a 5 out of 10. She states she has pain throughout her right knee and describes it as a constant aching sensation. Patient does state this has been going on for years and progressively worsened over time. Patient does believe it is more wear and tear and arthritis. Patient denies any prior surgery. She does state years ago she did have an injection in [place] that did provide significant improvement. Patient does states she has tried conservative treatment including oral medication such as Tylenol and ibuprofen along with heat and ice and topicals with minimal relief. Patient does currently use Aleve with some improvement. Patient is interested in any help we may be able to provide. Patient has tried at home stretching exercise for longer than 12 weeks. Patient has also had physical therapy in the past with no additional changes. Her Efraín has been reviewed and is appropriate. CC: Grisel Barron APRN [facility] Disclaimer: The information contained in this section may have been updated after the patient was seen, as this information can be updated by other users. Medical History (Updated 11/22/23 @ 11:29 by Grisel Barron APRN) Left ear pain Right ear pain Bilateral impacted cerumen Surgical History History of hysteroscopy Family History (Updated 11/22/23 @ 11:07 by Amy Nguyen RN) Other Unknown family medical history Social History (Updated 11/22/23 @ 11:08 by Amy Nguyen RN) Smoking Status: Never smoker alcohol intake: never substance use type: denies use current occupational status: retired Travel in the last 8 weeks: None housing: house caffeine: Yes Review of Systems Review of Systems Review of systems:: pertinent systems reviewed and negative unless documented below Review of systems (narrative): Review of Systems: General: No recent weight changes, no fever, no sleep disturbances Respiratory: No cough, no shortness of air, no recurring pulmonary infections Cardiovascular/peripheral vascular: No chest pain, no palpitations, no edema, no shortness of breath Gastrointestinal: No new onset incontinence, normal bowel movements reported Genitourinary: No new onset incontinence Musculoskeletal: Right knee pain Psychiatric: [Normal mood/affect] Neurological: [Denies weakness in extremities], [denies balance issues] Meds Home Medications and Allergies Home Medications ?Medication ?Instructions ?Recorded ?Confirmed ?Type calcium carbonate (Calcium 500) 500 mg PO BID Supplement 10/02/17 07/09/23 History meloxicam 15 mg tablet 15 mg PO DAILY Pain 08/26/18 07/09/23 History cranberry fruit concentrate 250 mg 250 mg PO TID Supplement 08/26/21 07/09/23 History chewable tablet (Azo Cranberry) hnvaeprmxlkc-zqhpavzc-extmwu tablet 1 tab PO DAILY Supplement 08/26/21 07/09/23 History omega-3 fatty acids-fish oil 360 1 cap PO DAILY Supplement 08/26/21 07/09/23 History mg-1,200 mg capsule (Fish Oil) ibuprofen 800 mg tablet 800 mg PO Q8HP PRN Moderate Pain 10/13/21 07/09/23 Rx #20 tabs donepezil 10 mg tablet 10 mg PO HS 07/09/23 07/09/23 History escitalopram oxalate 10 mg tablet 10 mg PO DAILY 07/09/23 07/09/23 History memantine 10 mg tablet 10 mg PO BID 07/09/23 07/09/23 History azelastine 137 mcg (0.1 %) nasal 2 spray intranasal BID #30 mL 07/11/23 Rx spray New Prescriptions to Start Prescriptions: Allergies Allergy/AdvReac Type Severity Reaction Status Date / Time Sulfa (Sulfonamide Allergy Verified 07/09/23 10:51 Antibiotics) Objective Narrative: Physical Exam: General: Alert and oriented x3, no acute distress, pleasant and cooperative Lungs: Respirations even and unlabored, symmetrical chest expansion Eyes: PERRL Musculoskeletal: Flexion and extension of right knee somewhat guarded secondary to pain, [antalgic gait noted] Neurological: Speech clear, no gross sensory deficit Assessment and Plan *Assessment and plan (1) Right knee pain: Status: Acute Category: Medical Code(s): M25.561 - Pain in right knee Plan Patient is experiencing significant pain throughout her right knee with limited range of motion. Patient has tried and failed conservative therapy including physical therapy and continued at home exercising and stretching for longer than 12 weeks. I did discuss with patient that I do believe she would benefit from right intra-articular knee injection. Risk and benefits were discussed with the patient and she would like to proceed forward with this plan of care. Patient has had these injections in the past years ago they did provide more than 50% relief. I will also order the patient a compounded cream. Patient will return to clinic for right knee intra-articular injection. Patient has been instructed to contact the clinic with any concerns before the next appointment. Dr. Noonan has reviewed this note and agrees with this plan of care. This note was dictated using voice recognition software and make contain errors or omissions. All injections are used with Lidocaine or Bupivacaine and Depo Medrol.
== END 2023-11-22 23:59 | disposition home or self-care (01) ==
LOC: SC.PAIN 10:44
PROVIDERS: PCP Internal Medicine Adolescent Medicine; Visit Provider Nurse Practitioner Family
DX: M25.561 Pain in right knee (principal)
CPT/HCPCS: 99202; G0463

== ENCOUNTER 2023-12-04 13:29 | Day surgery (SDC) | payer MEDICARE, SELFPAY ==
[2023-12-04 13:55] VITALS: BP 146/49; PULSE 59; RESP 16; TEMP 36.5; O2SAT 98; BMI 30.6
[2023-12-04] MEDS: LIDOCAINE 1% 5ML PF VIAL 5 ML (14:18)
[2023-12-04] MEDS: BUPIVACAINE 0.25% 10ML INJ 25 MG IJ (14:18)
[2023-12-04] MEDS: methylPREDNISolone ACETATE 80MG/ML VIAL 80 MG (14:18)
[2023-12-04 14:19] VITALS: BP 153/53; PULSE 55; RESP 18; O2SAT 100
[2023-12-04 14:23] VITALS: BP 148/58; PULSE 58; RESP 18; O2SAT 98
--- NOTE | 2023-12-04 14:24 | P.PCN_ITS ---
Procedure Date: 12/04/23 Time: 14:10 Anesthesiologist:: Jose Eduardo Lara CRNA Complications:: None Pre-procedure Diagnosis:: DJD right knee. Chronic right knee pain. Post-procedure Diagnosis:: Same. Indications for Procedure:: Patient is a pleasant 73-year-old female comes our clinic today for intra- articular right knee injection of cortisone and local anesthetic. Patient describes right knee pain as constant, dull, aching. Patient reports having difficulty with flexion, extension. Patient reports ambulation increases pain significantly. Patient rates her pain 8/10. Procedure Details:: Details of the procedure explained to the patient. The patient taken procedure and placed in sitting position. The over the right knee was cleansed using chlorhexidine as a cleansing solution. Using a 25-gauge inch and half needle the right knee joint was accessed with ease through the anterior approach lateral to the patella. After negative aspiration 5 cc of solution containing 0.25% Marcaine +1% lidocaine and 40 mg of Depo-Medrol was injected. Patient tolerated procedure without difficulty. There are no complications. Plan and Disposition:: Patient was discharged without incident.
[2023-12-04 14:30] VITALS: BP 153/53; PULSE 55; RESP 18; O2SAT 100
== END 2023-12-04 14:23 | disposition home or self-care (01) ==
PROVIDERS: PCP Internal Medicine Adolescent Medicine; Visit Provider Nurse Anesthetist, Certified Registered
DX: M17.11 Unilateral primary osteoarthritis, right knee (principal); M25.561 Pain in right knee; G89.29 Other chronic pain
CPT/HCPCS: 20610; J1010